=== PATIENT | female | born 1950 | race Caucasian/White ===

== ENCOUNTER 2017-12-31 14:34 | Emergency (ER) | payer MEDICARE, OTHER ==
[~2017-12-31] VITALS: Ht 172.7 cm; Wt 75.0 kg
[2017-12-31] MEDS ORDERED: aspirin 81mg tab.chew PO ONE (15:35)
[2017-12-31 15:57] LABS: BASOPHILS % (AUTO) 0.3 % (0-1); EOSINOPHILS # (AUTO) 0.1 X10'3 (0-0.9); HEMATOCRIT 41.1 % (35.0-45.0); HEMOGLOBIN 14.3 g/dl (12.0-16.0); LYMPHOCYTES # (AUTO) 1.3 X10'3 (1.1-4.8); LYMPHOCYTES % (AUTO) 16.4 % (21-51); MEAN CORPUSCULAR HGB CONC 34.8 % (33.0-36.5); MEAN CORPUSCULAR VOLUME 91.9 FL (78-98); MEAN PLATELET VOLUME 6.6 FL (7.4-10.4); MONOCYTES # (AUTO) 0.9 X10'3 (0-0.9); MONOCYTES % (AUTO) 11.6 % (2-12); NEUTROPHILS # (AUTO) 5.6 X10'3 (1.8-7.7); NEUTROPHILS % (AUTO) 70.7 % (42-75); PLATELET COUNT 217 X10'3 (140-440); RED BLOOD COUNT 4.47 X10'6 (4.20-5.60); RED CELL DISTRIBUTION WIDTH 12.1 % (11.5-14.5)
[2017-12-31 16:12] LABS: PARTIAL THROMBOPLASTIN TIME 29 SECONDS (22-32); PROTHROMBIN TIME 10.7 SECONDS (9.0-12.0)
[2017-12-31 16:12] LABS: CLARITY,URINE SLIGHTLY CLOUDY (Clear); COLOR,URINE YELLOW (Yellow); GLUCOSE, URINE NEGATIVE (Neg); KETONES,URINE NEGATIVE (Neg); LEUKOCYTE ESTERASE ,URINE LARGE (Neg); NITRITES, URINE POSITIVE (Neg); OCCULT BLOOD,URINE LARGE (Neg); PH,URINE 6.5 (4.8-8.0); PROTEIN,URINE NEGATIVE (Neg); UROBILINOGEN,URINE 0.2 E.U/dL (0.2-1.0)
[2017-12-31 16:13] LABS: ALANINE AMINOTRANSFERASE 70 U/L (12-78); ALBUMIN 3.5 G/DL (3.4-5.0); ALBUMIN/GLOBULIN RATIO 0.8 (1.1-1.5); ALKALINE PHOSPHATASE 87 IU/L (46-116); ANION GAP 9 (8-16); ASPARTATE AMINO TRANSFERASE 77 U/L (10-37); BILIRUBIN,TOTAL 0.5 MG/DL (0.1-1.0); BLOOD UREA NITROGEN 17 MG/DL (7-18); CALCIUM 8.9 MG/DL (8.5-10.1); CHLORIDE 97 MMOL/L (99-107); CREATININE 0.63 MG/DL (0.40-0.90); GLUCOSE 89 MG/DL (70-104); POTASSIUM 4.1 MMOL/L (3.5-5.1); SODIUM 132 MMOL/L (135-145); TOTAL CARBON DIOXIDE 26.2 MMOL/L (24-32); eGFR > 90 ML/MIN
[2017-12-31 16:13] LABS: UA COLLECTION TYPE NON-SPECIFIED
[2017-12-31 16:17] LABS: BACTERIA,URINE 2+ /HPF (Neg); MUCUS STRANDS NONE SEEN /LPF (Neg); SQUAMOUS EPITHELIAL CELL,UR FEW /LPF (FEW); WBC,URINE 30-50 /HPF (0-4)
[2017-12-31 16:20] LABS: MAGNESIUM 2.1 MG/DL (1.5-2.4)
[2017-12-31] MEDS ORDERED: HYDR-569 PO (17:08)
[2017-12-31] MEDS ORDERED: CEPH250T PO (17:08)
[2017-12-31] MEDS ORDERED: cephalexin 250mg capsule PO ONE (17:10)
[2017-12-31 17:23] VITALS: BP 152/68
== END 2017-12-31 17:35 | disposition home or self-care (01) ==
LOC: ER 14:35
DX: N39.0 Urinary tract infection, site not specified (principal); I83.93 Asymptomatic varicose veins of bilateral lower extremities; M71.21 Synovial cyst of popliteal space [Baker], right knee; Z87.891 Personal history of nicotine dependence; Z90.710 Acquired absence of both cervix and uterus
CPT/HCPCS: 36415; 71045; 80053; 81001; 83735; 83880; 85025; 85610; 85730; 86885; 86900; 86901; 87077; 87088; 87186; 93005; 93970; 99285

== ENCOUNTER 2018-11-07 14:01 | Day surgery (SDC) | payer MEDICARE ==
[2018-11-06 15:13] LABS: ALBUMIN 3.6 G/DL (3.4-5.0); ANION GAP 7 (8-16); BLOOD UREA NITROGEN 13 MG/DL (7-18); BUN/CREATININE RATIO 19.1 (6.6-38.0); CALCIUM 9.3 MG/DL (8.5-10.1); CHLORIDE 95 MMOL/L (99-107); CREATININE 0.68 MG/DL (0.40-0.90); POTASSIUM 4.3 MMOL/L (3.5-5.1); SODIUM 130 MMOL/L (135-145); TOTAL CARBON DIOXIDE 27.7 MMOL/L (24-32); eGFR 86 ML/MIN
[2018-11-06 15:16] LABS: GLUCOSE 89 MG/DL (70-104); INR 1.1 INR; PARTIAL THROMBOPLASTIN TIME 30 SECONDS (22-32); PROTHROMBIN TIME 11.3 SECONDS (9.0-12.0)
[2018-11-06 15:26] LABS: BASOPHILS % (AUTO) 0.9 % (0-1); EOSINOPHILS % (AUTO) 0.9 % (0-6); HEMATOCRIT 43.5 % (35.0-45.0); HEMOGLOBIN 14.6 g/dl (12.0-16.0); LYMPHOCYTES # (AUTO) 1.1 X10'3 (1.1-4.8); LYMPHOCYTES % (AUTO) 26.9 % (21-51); MEAN CORPUSCULAR HEMOGLOBIN 30.5 PG (27.0-31.0); MEAN CORPUSCULAR HGB CONC 33.6 g/dL (33.0-36.5); MEAN CORPUSCULAR VOLUME 90.5 FL (78-98); MEAN PLATELET VOLUME 7.1 FL (7.4-10.4); MONOCYTES # (AUTO) 0.6 X10'3 (0-0.9); MONOCYTES % (AUTO) 14.1 % (2-12); NEUTROPHILS # (AUTO) 2.4 X10'3 (1.8-7.7); NEUTROPHILS % (AUTO) 57.2 % (42-75); PLATELET COUNT 197 X10'3 (140-440); RED BLOOD COUNT 4.81 X10'6 (4.20-5.60); WHITE BLOOD COUNT 4.3 X10'3 (4.5-11.0)
[2018-11-07] VITALS (9 sets, daily range): BP systolic 102–143; BP diastolic 43–95
[~2018-11-07] VITALS: Ht 172.7 cm; Wt 75.3 kg
[~2018-11-07 14:01] MED LIST: CEPH250T PO; HYDR-4383 PO
[2018-11-07] MEDS ORDERED: LORazepam 0.5 MG tablet PO ONE (14:25)
[2018-11-07] MEDS ORDERED: normal saline 1000ml 1,000 ML IV SCH (14:25)
[2018-11-07] MEDS ORDERED: LIDOcaine/PRILOcaine 5gm cream TP ONE (14:25)
[2018-11-07] MEDS ORDERED: diphenhydrAMINE 25mg capsule PO ONE (14:25)
[2018-11-07] MEDS ORDERED: ASPI81TA52 PO (15:31)
[2018-11-07] MEDS ORDERED: LEVO112T5 PO (15:31)
[2018-11-07] MEDS ORDERED: LOSA50TA3 PO (15:31)
[2018-11-07] MEDS ORDERED: BUPR150T8 PO (15:31)
[2018-11-07] MEDS ORDERED: FLUO20CA39 PO (15:31)
[2018-11-07] MEDS ORDERED: MILK1CAP3 PO (15:31)
[2018-11-07] MEDS ORDERED: heparin 1,000unit/ml 10ml vial 10 ML ONE (15:52)
[2018-11-07] MEDS ORDERED: LIDOcaine 1% (10mg/ml)w/preservative injection 20ml MDV ONE (15:52)
[2018-11-07] MEDS ORDERED: nitroGLYCERIN-Tridil 50MG/D5W 250 ML IV ONE (15:52)
[2018-11-07] MEDS ORDERED: verapamil 2.5 mg/ml inj IV ONE (15:52)
[2018-11-07] MEDS ORDERED: iohexol 350MG/ML 100ml bottle IV ONE (15:52)
[2018-11-07] MEDS ORDERED: OXAZEpam 15mg capsule PO PRN (18:50)
[2018-11-07] MEDS ORDERED: ondansetron/PF 4mg/2ml inj IV PRN (18:55)
[2018-11-07] MEDS ORDERED: proCHLORperazine 10 MG/2 ml inj IV PRN (18:55)
[2018-11-19] MEDS ORDERED: VITA-268 PO (13:29)
[2018-11-19] MEDS ORDERED: MELA3TAB PO (13:29)
== END 2018-11-07 20:45 | disposition home or self-care (01) ==
LOC: SSTAY O 14:01
PROVIDERS: ATTEND Internal Medicine Interventional Cardiology
DX: R94.39 Abnormal result of other cardiovascular function study (principal); I34.0 Nonrheumatic mitral (valve) insufficiency; J44.9 Chronic obstructive pulmonary disease, unspecified; I10 Essential (primary) hypertension; E03.9 Hypothyroidism, unspecified; Z86.19 Personal history of other infectious and parasitic diseases
CPT/HCPCS: 36415; 80048; 85025; 85610; 85730; 93005; 93458; 99152; A6257; J1644; J2001; J7030; Q0163; Q9967; 90662; 99153; A4620; C1769; J3490

== ENCOUNTER 2018-11-21 05:33 | Inpatient (IN) | payer MEDICARE, OTHER ==
[2018-11-19 13:58] LABS: BASOPHILS # (AUTO) 0.1 X10'3 (0-0.2); BASOPHILS % (AUTO) 1.3 % (0-1); EOSINOPHILS % (AUTO) 0.7 % (0-6); LYMPHOCYTES # (AUTO) 1.1 X10'3 (1.1-4.8); LYMPHOCYTES % (AUTO) 21.4 % (21-51); MEAN CORPUSCULAR HEMOGLOBIN 30.6 PG (27.0-31.0); MEAN CORPUSCULAR HGB CONC 33.8 g/dL (33.0-36.5); MEAN CORPUSCULAR VOLUME 90.6 FL (78-98); MEAN PLATELET VOLUME 6.5 FL (7.4-10.4); MONOCYTES # (AUTO) 0.6 X10'3 (0-0.9); MONOCYTES % (AUTO) 12.7 % (2-12); NEUTROPHILS # (AUTO) 3.2 X10'3 (1.8-7.7); NEUTROPHILS % (AUTO) 63.9 % (42-75); PRE OP HEMATOCRIT 43.9 % (35.0-45.0); PRE OP HEMOGLOBIN 14.8 g/dL (12.0-16.0); PRE OP PLATELET COUNT 236 X10'3 (140-440); RED BLOOD COUNT 4.84 X10'6 (4.20-5.60); RED CELL DISTRIBUTION WIDTH 13.2 % (11.5-14.5)
[2018-11-19 14:07] LABS: PRE OP INR 1.2 INR; PRE OP PROTIME 11.8 SECONDS (9.0-12.0)
[2018-11-19 14:16] LABS: ALBUMIN 3.5 G/DL (3.4-5.0); ALBUMIN/GLOBULIN RATIO 0.8 (1.1-1.5); ALKALINE PHOSPHATASE 95 IU/L (46-116); BLOOD UREA NITROGEN 16 MG/DL (7-18); BUN/CREATININE RATIO 23.9 (6.6-38.0); CALCIUM 9.3 MG/DL (8.5-10.1); CHLORIDE 98 MMOL/L (99-107); CREATININE 0.67 MG/DL (0.40-0.90); PRE OP ALT 78 U/L (30-65); PRE OP ANION GAP 7 (8-16); PRE OP AST 90 U/L (10-37); PRE OP BILIRUB, TOTAL 0.5 MG/DL (0.0-1.0); PRE OP GLUCOSE 94 MG/DL (70-104); PRE OP POTASSIUM 4.4 MMOL/L (3.4-5.1); PRE OP SODIUM 131 MMOL/L (135-145); eGFR 88 ML/MIN
[2018-11-19 14:40] LABS: HEMOGLOBIN A1C 5.7 % (4.5-6.2)
[2018-11-20 13:37] LABS: ABG BASE EXCESS 0.5 mmol/L (-2.0-3.0); ABG HCO3 22.6 mmol/L (22.0-26.0); ABG OXYGEN SATURATION 96.9 % (95-98); ABG PCO2 (T) 29.9 mmHg (32.0-45.0); ABG PH (T) 7.496 (7.350-7.450); ABG PO2 (T) 90.7 mmHg (83-108); ALLEN'S TEST Positive; FMetHb 0.3 % (0.3-1.12); FO2Hb 95.6 % (94-100)
[~2018-11-21] VITALS: Ht 172.7 cm; Wt 75.6 kg
[2018-11-21] VITALS (17 sets, daily range): BP systolic 88–123; BP diastolic 44–103
[~2018-11-21 05:33] MED LIST changes: +BUPR150T8 PO; -CEPH250T PO; +FLUO20CA39 PO; -HYDR-4383 PO; +LEVO112T5 PO; +LORazepam 2 mg/ml vial IV ONE; +LOSA50TA3 PO; +MELA3TAB PO; +VITA-268 PO; +ceFAZolin 2gm in dextrose, iso 100 ML IV ONE; +dextrose 50%-water 50ml dispensing syringe IV PRN; +famotidine 20mg tablet PO ONE; +gabapentin 300mg capsule PO ONE; +metoprolol tartrate 12.5mg (1/2 tablet) PO ONE; +mupirocin 2% nasal ointment 1gm UD NS ONE; +ringers solution, lacted 1,000 ML IV SCH; +vancomycin inj 1,500 MG in normal saline 300ml IV soln IV ONE
[2018-11-21] MEDS ORDERED: LIDOcaine 1% (10mg/ml) 2ml vial ONE (06:19)
[2018-11-21] MEDS ORDERED: LORazepam 2 mg/ml vial ONE (06:42)
[2018-11-21] MEDS ORDERED: calcium chloride 100 MG/1 ML inj IV ONE (07:00)
[2018-11-21] MEDS ORDERED: magnesium sulf 1 GM/2 ML ONE (07:00)
[2018-11-21] MEDS ORDERED: potassium Cl 2 mEq/ml inj IV ONE (07:00)
[2018-11-21] MEDS ORDERED: isoflurane 100ml inhalation liquid IH ONE (07:00)
[2018-11-21] MEDS ORDERED: phenylephrine 10mg/ml inj. ONE ×2 (07:00→07:56)
[2018-11-21] MEDS ORDERED: albumin (human) 25% 100 ML IV solution IV ONE (07:00)
[2018-11-21] MEDS ORDERED: LIDOcaine 2% (20 mg/ml) 5ml cardiac syringe ONE (07:00)
[2018-11-21] MEDS ORDERED: heparin 10,000 units/1 ML INJ ONE (07:00)
[2018-11-21] MEDS ORDERED: heparin 1,000 units/ml 10ml inj ONE (07:00)
[2018-11-21] MEDS ORDERED: protamine sulf. 10mg/ml inj. IV ONE (07:00)
[2018-11-21] MEDS ORDERED: DOBUTamine/D5W 500mg/250ml premix IV ONE (07:00)
[2018-11-21] MEDS ORDERED: nitroGLYCERIN in D5W 50mg/250ml (Tridil) infusion IV ONE (07:00)
[2018-11-21] MEDS ORDERED: methylPREDNISolone sod succ 1000mg vial ONE (07:00)
[2018-11-21] MEDS ORDERED: sodium bicarbonate (8.4%) 1 mEq/ml syringe ONE (07:00)
[2018-11-21] MEDS ORDERED: aminocaproic acid 250 MG/1 ML inj. ONE ×2 (07:00)
[2018-11-21] MEDS ORDERED: INSULIN R 100 UNIT in NS 100ML (1 UNIT/1 ML) BAG IV ONE (07:00)
[2018-11-21] MEDS ORDERED: SUFENTANIL CITRATE 50 MCG/ML 2ml ampule IV ONE (07:11)
[2018-11-21 07:55] LABS: ABG BASE EXCESS 0.1 mmol/L (-2.0-3.0); ABG HCO3 24.9 mmol/L (22.0-26.0); ABG OXYGEN SATURATION 99.4 % (95-98); ABG PCO2 41.2 mmHg (35.0-45.0); ABG PO2 456.4 mmHg (60.0-100.0); CL (ABG) 99 mmol/L (99-107); FCOHb 0.4 % (0.5-1.5); GLUCOSE (ABG) 88 mg/dl (70-105); IONIZED CA (ABG) 1.16 mmol/L (1.03-1.32); K (ABG) 4.3 mmol/L (3.3-5.1); NA (ABG) 131 mmol/L (135-145); TOTAL HEMOGLOBIN 13.2 G/dl (12.0-16.0)
[2018-11-21] MEDS ORDERED: rocuronium 10mg/ml inj IV ONE (07:55)
[2018-11-21] MEDS ORDERED: LIDOcaine 2% (20mg/ml) 5ml vial ONE (07:56)
[2018-11-21] MEDS ORDERED: pancuronium br 1mg/ml inj IV ONE (07:56)
[2018-11-21] MEDS ORDERED: propofol inj 20 ML IV ONE (07:56)
[2018-11-21] MEDS ORDERED: acetaminophen 1,000mg/100ml IV 100 ML IV ONE (08:24)
[2018-11-21] MEDS ORDERED: ceFAZolin 1000mg inj ONE (08:24)
[2018-11-21] MEDS ORDERED: ROPIVAcaine 0.5% (5mg/ml) 30ml vial ONE (08:24)
[2018-11-21 09:00] LABS: ABG BASE EXCESS -2.3 mmol/L (-2.0-3.0); ABG OXYGEN SATURATION 99.3 % (95-98); ABG PCO2 41.2 mmHg (35.0-45.0); ABG PH 7.364 (7.350-7.450); ABG PO2 337.2 mmHg (60.0-100.0); CL (ABG) 98 mmol/L (99-107); FCOHb 0.1 % (0.5-1.5); FMetHb 0.3 % (0.3-1.12); FO2Hb 98.9 % (94-100); GLUCOSE (ABG) 101 mg/dl (70-105); IONIZED CA (ABG) 1.09 mmol/L (1.03-1.32); K (ABG) 5.3 mmol/L (3.3-5.1); NA (ABG) 128 mmol/L (135-145); TOTAL HEMOGLOBIN 10.6 G/dl (12.0-16.0)
[2018-11-21 09:35] LABS: ABG BASE EXCESS VENOUS -0.4 mmol/L; ABG HCO3 VENOUS 25.6 mmol/L; ABG PCO2 VENOUS 48.4 mmHg; ABG PO2 VENOUS 57.1 mmHg; CL (ABG) 99 mmol/L (99-107); FCOHb VENOUS 0.9 %; FHHb VENOUS 12.1 %; FMetHb VENOUS 0.3 %; FO2Hb VENOUS 86.7 %; GLUCOSE (ABG) 106 mg/dl (70-105); K (ABG) 5.3 mmol/L (3.3-5.1); NA (ABG) 129 mmol/L (135-145); TOTAL HEMOGLOBIN 10.8 G/dl (12.0-16.0)
[2018-11-21 10:05] LABS: ABG BASE EXCESS -0.5 mmol/L (-2.0-3.0); ABG HCO3 24.8 mmol/L (22.0-26.0); ABG OXYGEN SATURATION 99.2 % (95-98); ABG PH 7.378 (7.350-7.450); CL (ABG) 100 mmol/L (99-107); FCOHb 0.3 % (0.5-1.5); FMetHb 0.4 % (0.3-1.12); FO2Hb 98.5 % (94-100); GLUCOSE (ABG) 117 mg/dl (70-105); K (ABG) 5.5 mmol/L (3.3-5.1); NA (ABG) 128 mmol/L (135-145); TOTAL HEMOGLOBIN 10.9 G/dl (12.0-16.0)
[2018-11-21 11:16] LABS: ABG BASE EXCESS -0.6 mmol/L (-2.0-3.0); ABG HCO3 23.9 mmol/L (22.0-26.0); ABG PH 7.406 (7.350-7.450); ABG PO2 405.7 mmHg (60.0-100.0); CL (ABG) 100 mmol/L (99-107); FCOHb 0.1 % (0.5-1.5); FMetHb 0.2 % (0.3-1.12); FO2Hb 98.7 % (94-100); GLUCOSE (ABG) 136 mg/dl (70-105); IONIZED CA (ABG) 1.26 mmol/L (1.03-1.32); K (ABG) 4.5 mmol/L (3.3-5.1); NA (ABG) 130 mmol/L (135-145); TOTAL HEMOGLOBIN 10.8 G/dl (12.0-16.0)
[2018-11-21 11:20] LABS: ACT @ 1.70 U 350 SEC (193-297); ACT @ 2.84 U 566 SEC (260-420); BASELINE ACT 145 SEC (101-148)
[2018-11-21 11:20] LABS: ACTIVATED CLOTTING TIME 705 SEC (101-148)
[2018-11-21 11:21] LABS: ACTIVATED CLOTTING TIME 925 SEC (101-148)
[2018-11-21 11:21] LABS: ACTIVATED CLOTTING TIME 128 SEC (101-148)
[2018-11-21] MEDS ORDERED: niCARDipine-NS 40mg/200ml IVPB 200 ML IV PRN (11:54)
[2018-11-21] MEDS ORDERED: nitroGLYCERIN-Tridil 50MG/D5W 250 ML IV PRN (11:54)
[2018-11-21] MEDS ORDERED: DOPamine 400mg/D5W 250ml 250 ML IV PRN (11:54)
[2018-11-21] MEDS ORDERED: magnesium 2GM in 50ml NS 50 ML IV PRN (11:55)
[2018-11-21] MEDS ORDERED: normal saline 250ml IV soln 250 ML IV PRN (11:55)
[2018-11-21] MEDS ORDERED: magnesium 4gm in 100ml NS 100 ML IV PRN (11:55)
[2018-11-21] MEDS ORDERED: acetaminophen 325mg tablet PO PRN (11:55)
[2018-11-21] MEDS ORDERED: insulin regular, human inj. 100 UNITS in normal saline 100ml IV soln 100 ML IV SCH ×2 (11:55)
[2018-11-21] MEDS ORDERED: dextrose 50%-water 50ml dispensing syringe IV PRN (11:55)
[2018-11-21] MEDS ORDERED: metoclopramide 5 mg/ml inj IV PRN (11:55)
[2018-11-21] MEDS ORDERED: sodium phosphate inj. 30 MMOL in dextrose 5%-water 250 ML IV PRN (11:55)
[2018-11-21] MEDS ORDERED: pantoprazole 40 MG vial IV ONE (11:55)
[2018-11-21] MEDS ORDERED: sodium phosphate inj. 15 MMOL in dextrose 5%-water 150 ML IV PRN (11:55)
[2018-11-21] MEDS ORDERED: ondansetron/PF 4mg/2ml inj IV PRN (11:55)
--- NOTE | 2018-11-21 12:07 | NUR ---
Received to room 2012, accompanied by MDs and surgical crew. See assessment records. Mather/PAline/CVPline and IVs noted in IV assessment records. All sites without redness or swelling. Vasoactive drugs infusing per Central Line.
--- NOTE | 2018-11-21 12:15 | NUR ---
Nutrition consult received. Pt s/p mitral valve repair and L atrial appendage ligation. Will need written and verbal post cardiac surgery diet education. Addendum: 11/21/18 at [address] Amended: Links added.
[2018-11-21 12:25] LABS: ABG BASE EXCESS -1.9 mmol/L (-2.0-3.0); ABG HCO3 24.1 mmol/L (22.0-26.0); ABG OXYGEN SATURATION 99.1 % (95-98); ABG PCO2 (T) 45.2 mmHg (32.0-45.0); ABG PH (T) 7.344 (7.350-7.450); ABG PO2 (T) 241.6 mmHg (83-108); FCOHb 0.3 % (0.5-1.5); FLOW 55 L/min; FMetHb 0.2 % (0.3-1.12); FO2Hb 98.6 % (94-100); PEEP 5 cm H2O; RESPIRATORY RATE 12 b/min; RESPIRATORY RATE (OBSERVED) 12 b/min; TIDAL VOLUME 550 mL; TOTAL HEMOGLOBIN 14.3 G/dl (12.0-16.0)
[2018-11-21 12:42] LABS: ALANINE AMINOTRANSFERASE 55 U/L (12-78); ALBUMIN 2.9 G/DL (3.4-5.0); ALBUMIN/GLOBULIN RATIO 0.9 (1.1-1.5); ALKALINE PHOSPHATASE 68 IU/L (46-116); ANION GAP 3 (8-16); ASPARTATE AMINO TRANSFERASE 99 U/L (10-37); BASOPHILS % (AUTO) 0.4 % (0-1); BILIRUBIN,TOTAL 0.6 MG/DL (0.1-1.0); BLOOD UREA NITROGEN 13 MG/DL (7-18); BUN/CREATININE RATIO 16.7 (6.6-38.0); CALCIUM 8.7 MG/DL (8.5-10.1); CHLORIDE 103 MMOL/L (99-107); CREATININE 0.78 MG/DL (0.40-0.90); EOSINOPHILS % (AUTO) 0.2 % (0-6); GLUCOSE 137 MG/DL (70-104); HEMATOCRIT 40.5 % (35.0-45.0); HEMOGLOBIN 13.8 g/dl (12.0-16.0); LYMPHOCYTES # (AUTO) 0.6 X10'3 (1.1-4.8); LYMPHOCYTES % (AUTO) 4.7 % (21-51); MAGNESIUM 3.5 MG/DL (1.5-2.4); MEAN CORPUSCULAR HEMOGLOBIN 30.8 PG (27.0-31.0); MEAN CORPUSCULAR HGB CONC 33.9 g/dL (33.0-36.5); MEAN CORPUSCULAR VOLUME 90.7 FL (78-98); MEAN PLATELET VOLUME 6.6 FL (7.4-10.4); MONOCYTES # (AUTO) 0.5 X10'3 (0-0.9); MONOCYTES % (AUTO) 3.6 % (2-12); NEUTROPHILS # (AUTO) 12.3 X10'3 (1.8-7.7); NEUTROPHILS % (AUTO) 91.1 % (42-75); PHOSPHORUS 2.7 MG/DL (2.3-4.5); PLATELET COUNT 112 X10'3 (140-440); RED BLOOD COUNT 4.47 X10'6 (4.20-5.60); RED CELL DISTRIBUTION WIDTH 13.1 % (11.5-14.5); SODIUM 133 MMOL/L (135-145); TOTAL CARBON DIOXIDE 26.7 MMOL/L (24-32); WHITE BLOOD COUNT 13.5 X10'3 (4.5-11.0); eGFR 73 ML/MIN
[2018-11-21 12:46] LABS: INR 1.3 INR; PARTIAL THROMBOPLASTIN TIME 31 SECONDS (22-32); PROTHROMBIN TIME 13.4 SECONDS (9.0-12.0)
[2018-11-21] MEDS: albumin (Human) 5% 250ml 250 ML IV PRN ×3 (12:48→16:34)
[2018-11-21] MEDS: sodium chloride 0.45% 1,000 ML IV SCH (12:49)
[2018-11-21] MEDS: insulin Lispro (HumaLOG) vial - multi-dose SQ SCH ×2 (12:50→16:51)
[2018-11-21 13:06] LABS: POTASSIUM 4.2 MMOL/L (3.5-5.1)
[2018-11-21] MEDS: insulin regular, human 100 UNIT in normal saline 100ml IV soln 99 ML IV SCH ×4 (13:14→14:32)
[2018-11-21] MEDS: potassium Cl 20mEq/100mL bag 100 ML IV PRN ×2 (13:35→22:37)
[2018-11-21] MEDS: gabapentin 300mg capsule PO SCH ×2 (14:35→20:02)
[2018-11-21] MEDS: ceFAZolin 1GM/D5W- ADD-VANTAGE 50 ML IV SCH (16:02)
[2018-11-21] MEDS: morphine 4 MG/ML inj SYRINge IV PRN (16:02)
[2018-11-21 17:26] LABS: ABG BASE EXCESS -2.4 mmol/L (-2.0-3.0); ABG HCO3 23.5 mmol/L (22.0-26.0); ABG OXYGEN SATURATION 95.2 % (95-98); ABG PCO2 (T) 45.4 mmHg (32.0-45.0); ABG PH (T) 7.333 (7.350-7.450); ABG PO2 (T) 81.3 mmHg (83-108); FCOHb 0.2 % (0.5-1.5); MINUTE VOLUME 9 L/min; PATIENT TEMPERATURE 37.4; PEEP 5 cm H2O; RESPIRATORY RATE (OBSERVED) 15 b/min; TOTAL HEMOGLOBIN 12.2 G/dl (12.0-16.0)
--- NOTE | 2018-11-21 17:33 | NUR ---
Patient extubated and placed on 3L NC.
[2018-11-21 18:22] LABS: BASOPHILS % (AUTO) 0.5 % (0-1); EOSINOPHILS % (AUTO) 0 % (0-6); HEMATOCRIT 34.4 % (35.0-45.0); HEMOGLOBIN 12.1 g/dl (12.0-16.0); LYMPHOCYTES # (AUTO) 0.3 X10'3 (1.1-4.8); LYMPHOCYTES % (AUTO) 3.4 % (21-51); MEAN CORPUSCULAR HEMOGLOBIN 31.8 PG (27.0-31.0); MEAN CORPUSCULAR HGB CONC 35.1 g/dL (33.0-36.5); MEAN CORPUSCULAR VOLUME 90.6 FL (78-98); MEAN PLATELET VOLUME 7.3 FL (7.4-10.4); MONOCYTES # (AUTO) 0.3 X10'3 (0-0.9); MONOCYTES % (AUTO) 3.3 % (2-12); NEUTROPHILS # (AUTO) 9.5 X10'3 (1.8-7.7); NEUTROPHILS % (AUTO) 92.8 % (42-75); PLATELET COUNT 117 X10'3 (140-440); RED CELL DISTRIBUTION WIDTH 13.4 % (11.5-14.5); WHITE BLOOD COUNT 10.2 X10'3 (4.5-11.0)
[2018-11-21 18:25] LABS: ALBUMIN 3.6 G/DL (3.4-5.0); ANION GAP 5 (8-16); BLOOD UREA NITROGEN 13 MG/DL (7-18); BUN/CREATININE RATIO 17.6 (6.6-38.0); CALCIUM 8.1 MG/DL (8.5-10.1); CHLORIDE 107 MMOL/L (99-107); CREATININE 0.74 MG/DL (0.40-0.90); GLUCOSE 106 MG/DL (70-104); MAGNESIUM 2.3 MG/DL (1.5-2.4); POTASSIUM 4.3 MMOL/L (3.5-5.1); SODIUM 137 MMOL/L (135-145); TOTAL CARBON DIOXIDE 24.8 MMOL/L (24-32); eGFR 78 ML/MIN
--- NOTE | 2018-11-21 18:25 | NUR ---
Problems reprioritized. Patient report given, questions answered & plan of care reviewed with Karyna Velasquez RN.
--- NOTE | 2018-11-21 18:30 | NUR ---
Patient in room CICU 2011. I have received report from Amna HENDRICKS and had the opportunity to ask questions and assume patient care. Pt post extubation@1733, very somulent,opens eyes to voice but appears to fall right back to sleep. Sats 95% on 3LNC. Dopamine infusing@4mcg.
[2018-11-21] MEDS ORDERED: buPROPion SR 150mg tablet PO SCH (20:00)
[2018-11-21] MEDS: docusate sod 100mg capsule PO SCH (20:00)
[2018-11-21] MEDS: mupirocin 2% nasal ointment 1gm UD NS SCH ×2 (20:01→20:39)
[2018-11-21] MEDS: vancomycin/NS 1 GM ADD-VANTAGE 250 ML IV SCH (20:01)
--- NOTE | 2018-11-21 20:03 | NUR ---
Pt remains very somulent, awakens to voice but falls back asleep immediately after. PM PO meds held at this time. Will continue to monitor
--- NOTE | 2018-11-21 23:00 | NUR ---
Report given to break relief ELADIO Monroe, all special issues communicated. Will resume care in 30 minutes.
--- NOTE | 2018-11-21 23:30 | NUR ---
Resumed care after receiving report from Mabel HENDRICKS. Pt still somulent but awakens to voice. Dopamine still at 5mcg.
[2018-11-22] VITALS (23 sets, daily range): BP systolic 96–132; BP diastolic 35–54
[2018-11-22] MEDS: ceFAZolin 1GM/D5W- ADD-VANTAGE 50 ML IV SCH ×3 (00:02→16:35)
--- NOTE | 2018-11-22 01:44 | NUR ---
Pt appears to be sleeping. Was awake and answering questions appropriately earlier during bath and q2h turn.
[2018-11-22] MEDS: morphine 4 MG/ML inj SYRINge IV PRN ×2 (02:15→07:10)
[2018-11-22 04:19] LABS: BASOPHILS % (AUTO) 0.1 % (0-1); EOSINOPHILS % (AUTO) 0 % (0-6); HEMATOCRIT 32.8 % (35.0-45.0); HEMOGLOBIN 11.2 g/dl (12.0-16.0); LYMPHOCYTES # (AUTO) 0.8 X10'3 (1.1-4.8); LYMPHOCYTES % (AUTO) 6.7 % (21-51); MEAN CORPUSCULAR HEMOGLOBIN 30.9 PG (27.0-31.0); MEAN CORPUSCULAR HGB CONC 34.2 g/dL (33.0-36.5); MEAN CORPUSCULAR VOLUME 90.3 FL (78-98); MEAN PLATELET VOLUME 6.9 FL (7.4-10.4); MONOCYTES # (AUTO) 1.1 X10'3 (0-0.9); MONOCYTES % (AUTO) 9.4 % (2-12); NEUTROPHILS # (AUTO) 10.1 X10'3 (1.8-7.7); NEUTROPHILS % (AUTO) 83.8 % (42-75); PLATELET COUNT 106 X10'3 (140-440); RED BLOOD COUNT 3.63 X10'6 (4.20-5.60); RED CELL DISTRIBUTION WIDTH 13.4 % (11.5-14.5)
[2018-11-22 04:29] LABS: INR 1.2 INR; PARTIAL THROMBOPLASTIN TIME 31 SECONDS (22-32); PROTHROMBIN TIME 11.9 SECONDS (9.0-12.0)
[2018-11-22 04:42] LABS: ALANINE AMINOTRANSFERASE 42 U/L (12-78); ALBUMIN 3.5 G/DL (3.4-5.0); ALBUMIN/GLOBULIN RATIO 1.2 (1.1-1.5); ALKALINE PHOSPHATASE 43 IU/L (46-116); ANION GAP 6 (8-16); ASPARTATE AMINO TRANSFERASE 88 U/L (10-37); BILIRUBIN,TOTAL 0.5 MG/DL (0.1-1.0); BLOOD UREA NITROGEN 12 MG/DL (7-18); BUN/CREATININE RATIO 19.4 (6.6-38.0); CALCIUM 8.3 MG/DL (8.5-10.1); CHLORIDE 106 MMOL/L (99-107); CREATININE 0.62 MG/DL (0.40-0.90); GLUCOSE 104 MG/DL (70-104); MAGNESIUM 2.5 MG/DL (1.5-2.4); PHOSPHORUS 4.3 MG/DL (2.3-4.5); POTASSIUM 4.4 MMOL/L (3.5-5.1); SODIUM 138 MMOL/L (135-145); TOTAL CARBON DIOXIDE 26.4 MMOL/L (24-32); TOTAL PROTEIN 6.5 G/DL (6.4-8.2); eGFR > 90 ML/MIN
[2018-11-22] MEDS: potassium Cl 20mEq/100mL bag 100 ML IV PRN (04:51)
[2018-11-22] MEDS: HYDROcodone/acetaminophen 10/325mg tab PO PRN ×3 (05:31→17:21)
--- NOTE | 2018-11-22 05:43 | NUR ---
Dangled pt at side of bed w/two person assist. Pt tolerated well but complained of lightheadedness. Chest tube output, serosanguineous, 210 mL with sitting upright. Vital signs stable. Returned to bed without incident.
--- NOTE | 2018-11-22 06:15 | NUR ---
Patient in room CICU 2011. I have received report from station baggage agent and had the opportunity to ask questions and assume patient care.
--- NOTE | 2018-11-22 06:18 | NUR ---
Problems reprioritized. Patient report given, questions answered & plan of care reviewed with Nilda HENDRICKS.
[2018-11-22] MEDS: gabapentin 300mg capsule PO SCH ×3 (08:00→20:50)
[2018-11-22] MEDS ORDERED: atorvastatin 10mg tablet PO SCH (08:00)
[2018-11-22] MEDS ORDERED: aspirin 325mg tablet, delayed-release (Ecotrin) PO SCH (08:00)
[2018-11-22] MEDS: vancomycin/NS 1 GM ADD-VANTAGE 250 ML IV SCH ×2 (08:31→19:46)
[2018-11-22] MEDS: FLUoxetine 20mg capsule PO SCH (08:31)
[2018-11-22] MEDS: docusate sod 100mg capsule PO SCH ×2 (08:31→19:46)
[2018-11-22] MEDS: mupirocin 2% nasal ointment 1gm UD NS SCH ×2 (08:31→19:46)
[2018-11-22] MEDS: levoTHYROXINE 112mcg tablet PO SCH (08:31)
[2018-11-22] MEDS: albumin (Human) 5% 250ml 250 ML IV PRN (08:36)
[2018-11-22] MEDS: insulin Lispro (HumaLOG) vial - multi-dose SQ SCH ×2 (09:00→13:00)
[2018-11-22] MEDS: sodium chloride 0.45% 1,000 ML IV SCH (17:36)
--- NOTE | 2018-11-22 18:27 | NUR ---
Patient in room CICU 2011. I have received report from Desire HENDRICKS, and had the opportunity to ask questions and assume patient care.
--- NOTE | 2018-11-22 19:30 | NUR ---
PT sitting up eating dinner. No s/s of distress noted at this time. VSS. PT receiving 2L O2 to NC, tolerating well. O2 >94%. CT site is CDI, serosanguineous drainage noted in tubing. Rosenberg in place draining to gravity. Sternal incision is CDI and MARKUS. Bed is locked and low. Call light is within reach. Will continue to monitor.
--- NOTE | 2018-11-22 21:00 | NUR ---
PRN Zofran given for PT c/o nausea. Will continue to monitor.
[2018-11-23] VITALS (24 sets, daily range): BP systolic 89–143; BP diastolic 37–94
[2018-11-23] MEDS: ceFAZolin 1GM/D5W- ADD-VANTAGE 50 ML IV SCH (00:11)
[2018-11-23] MEDS: HYDROcodone/acetaminophen 10/325mg tab PO PRN ×5 (00:12→21:34)
--- NOTE | 2018-11-23 00:30 | NUR ---
PT c/o pain at chest tube site, PRN [place] given. Will continue to monitor.
[2018-11-23 02:54] LABS: BASOPHILS % (AUTO) 0.2 % (0-1); EOSINOPHILS % (AUTO) 0 % (0-6); HEMATOCRIT 28.5 % (35.0-45.0); HEMOGLOBIN 9.2 g/dl (12.0-16.0); LYMPHOCYTES # (AUTO) 0.8 X10'3 (1.1-4.8); LYMPHOCYTES % (AUTO) 7.5 % (21-51); MEAN CORPUSCULAR HEMOGLOBIN 29.9 PG (27.0-31.0); MEAN CORPUSCULAR HGB CONC 32.4 g/dL (33.0-36.5); MEAN CORPUSCULAR VOLUME 92.5 FL (78-98); MEAN PLATELET VOLUME 7.3 FL (7.4-10.4); MONOCYTES # (AUTO) 0.8 X10'3 (0-0.9); MONOCYTES % (AUTO) 7.2 % (2-12); NEUTROPHILS # (AUTO) 9.5 X10'3 (1.8-7.7); NEUTROPHILS % (AUTO) 85.1 % (42-75); PLATELET COUNT 81 X10'3 (140-440); RED BLOOD COUNT 3.09 X10'6 (4.20-5.60); RED CELL DISTRIBUTION WIDTH 13.5 % (11.5-14.5); WHITE BLOOD COUNT 11.2 X10'3 (4.5-11.0)
--- NOTE | 2018-11-23 03:00 | NUR ---
PT sleeping with no s/s of distress noted at this time, Olancha has been effective for pain control. VSS. Bed is locked and low. Call light is within reach. Will continue to monitor.
[2018-11-23 03:15] LABS: ALBUMIN 3.6 G/DL (3.4-5.0); ANION GAP 6 (8-16); BLOOD UREA NITROGEN 32 MG/DL (7-18); BUN/CREATININE RATIO 20.8 (6.6-38.0); CALCIUM 8.3 MG/DL (8.5-10.1); CHLORIDE 98 MMOL/L (99-107); CREATININE 1.54 MG/DL (0.40-0.90); GLUCOSE 156 MG/DL (70-104); MAGNESIUM 2.3 MG/DL (1.5-2.4); PHOSPHORUS 4.3 MG/DL (2.3-4.5); POTASSIUM 5.2 MMOL/L (3.5-5.1); SODIUM 130 MMOL/L (135-145); TOTAL CARBON DIOXIDE 25.6 MMOL/L (24-32); eGFR 34 ML/MIN
[2018-11-23] MEDS ORDERED: magnesium 2GM in 50ml NS 50 ML IV ONE (05:10)
--- NOTE | 2018-11-23 06:15 | NUR ---
Patient in room CICU 2011. I have received report from maintenance technician 2nd shift and had the opportunity to ask questions and assume patient care.
[2018-11-23] MEDS ORDERED: aspirin 325mg tablet, delayed-release (Ecotrin) PO SCH (08:00)
[2018-11-23] MEDS: FLUoxetine 20mg capsule PO SCH (08:33)
[2018-11-23] MEDS: mupirocin 2% nasal ointment 1gm UD NS SCH (08:33)
[2018-11-23] MEDS: levoTHYROXINE 112mcg tablet PO SCH (08:34)
[2018-11-23] MEDS: aspirin 81mg tab.chew PO SCH (08:34)
[2018-11-23] MEDS: pantoprazole 40mg Tablet.DR PO SCH (08:34)
[2018-11-23] MEDS: docusate sod 100mg capsule PO SCH ×2 (08:34→20:08)
[2018-11-23] MEDS: gabapentin 300mg capsule PO SCH (08:34)
[2018-11-23 14:03] LABS: CLARITY,URINE SLIGHTLY CLOUDY (Clear); COLOR,URINE YELLOW (Yellow); GLUCOSE, URINE NEGATIVE (Neg); KETONES,URINE NEGATIVE (Neg); LEUKOCYTE ESTERASE ,URINE SMALL (Neg); NITRITES, URINE NEGATIVE (Neg); OCCULT BLOOD,URINE LARGE (Neg); PROTEIN,URINE NEGATIVE (Neg); UROBILINOGEN,URINE 0.2 E.U/dL (0.2-1.0)
[2018-11-23 14:08] LABS: UA COLLECTION TYPE NON-SPECIFIED
[2018-11-23 14:14] LABS: BACTERIA,URINE FEW /HPF (Neg); RBC,URINE 20-50 /HPF (0-2); SQUAMOUS EPITHELIAL CELL,UR FEW /LPF (FEW)
[2018-11-23 14:17] LABS: SODIUM,URINE RANDOM < 15 MEQ/L
[2018-11-23 14:42] LABS: UA EOSINOPHILS NO EOS /HPF
--- NOTE | 2018-11-23 18:04 | NUR ---
Problems reprioritized. Patient report given, questions answered & plan of care reviewed with oncoming shift.
--- NOTE | 2018-11-23 23:00 | NUR ---
At the hourly I and O checks I noticed that the drainage from chest tube had significantly increased from the 2200 check to this time. I notified the charge nurse, ELADIO Anderson and she contacted Dr. Marcano. At this time the chest tube Drainage unit had filled all chambers and had rolled into the suction control chamber. We changed out the chamber and continued to monitor patient vitals which at this time are stable. Labs were drawn at this time specifically H/H and PT/INR.
[2018-11-23 23:23] LABS: BASOPHILS % (AUTO) 0.4 % (0-1); EOSINOPHILS % (AUTO) 0.2 % (0-6); HEMATOCRIT 26.7 % (35.0-45.0); HEMOGLOBIN 8.8 g/dl (12.0-16.0); LYMPHOCYTES % (AUTO) 8.1 % (21-51); MEAN CORPUSCULAR HEMOGLOBIN 30.4 PG (27.0-31.0); MEAN CORPUSCULAR HGB CONC 33.1 g/dL (33.0-36.5); MEAN CORPUSCULAR VOLUME 91.7 FL (78-98); MEAN PLATELET VOLUME 7.2 FL (7.4-10.4); MONOCYTES % (AUTO) 8.6 % (2-12); NEUTROPHILS # (AUTO) 9.9 X10'3 (1.8-7.7); NEUTROPHILS % (AUTO) 82.7 % (42-75); PLATELET COUNT 102 X10'3 (140-440); RED BLOOD COUNT 2.91 X10'6 (4.20-5.60); RED CELL DISTRIBUTION WIDTH 13.3 % (11.5-14.5)
--- NOTE | 2018-11-23 23:30 | NUR ---
Dr. Marcano called for sudden increased CT output; dk burgundy color w/clots; approx 600cc over last hour; stat labs done; VSS; pt offers no complaints; no new orders.
[2018-11-23 23:46] LABS: INR 1.1 INR; PROTHROMBIN TIME 11.5 SECONDS (9.0-12.0)
[2018-11-24] VITALS (31 sets, daily range): BP systolic 77–197; BP diastolic 34–110
[2018-11-24 00:33] LABS: BASOPHILS # (AUTO) 0.1 X10'3 (0-0.2); BASOPHILS % (AUTO) 0.5 % (0-1); EOSINOPHILS % (AUTO) 0.2 % (0-6); HEMATOCRIT 23.5 % (35.0-45.0); HEMOGLOBIN 7.8 g/dl (12.0-16.0); LYMPHOCYTES # (AUTO) 1.2 X10'3 (1.1-4.8); LYMPHOCYTES % (AUTO) 9.6 % (21-51); MEAN CORPUSCULAR HEMOGLOBIN 30.3 PG (27.0-31.0); MEAN CORPUSCULAR HGB CONC 33.1 g/dL (33.0-36.5); MEAN CORPUSCULAR VOLUME 91.7 FL (78-98); MEAN PLATELET VOLUME 7.6 FL (7.4-10.4); MONOCYTES # (AUTO) 1.1 X10'3 (0-0.9); MONOCYTES % (AUTO) 8.6 % (2-12); NEUTROPHILS # (AUTO) 10.4 X10'3 (1.8-7.7); NEUTROPHILS % (AUTO) 81.1 % (42-75); PLATELET COUNT 108 X10'3 (140-440); RED BLOOD COUNT 2.56 X10'6 (4.20-5.60); RED CELL DISTRIBUTION WIDTH 13.2 % (11.5-14.5); WHITE BLOOD COUNT 12.8 X10'3 (4.5-11.0)
--- NOTE | 2018-11-24 01:00 | NUR ---
Dr. Marcano called again re: continued large CT output; pt w/another 1400cc output; BP trending down; repeat H/H done, pt now symptomatic w/lightheadedness, pale and slightly clammy. on way in to see pt.
--- NOTE | 2018-11-24 01:30 | NUR ---
Chest tube drainage has continued to drain up to approx. 1.8 liters. Vitals are changing and Systolic Blood pressure is dropping from 130s to 100s. Charge nurse ELADIO Anderson notified and Dr. Marcano contacted again. Dr. Billy will come in to examine patient. Will continue to monitor patient.
--- NOTE | 2018-11-24 02:00 | NUR ---
Dr. Marcano arrives and orders patient to receive 2 units of blood which are started. Dr. Marcano consults with patient about going to the OR to surgically explore the reason for the bleeding. Patient is now c/o dizzyness and SBP are as low as 77. The rest of the surgical team arrives. Patient is prepared for the surgery. Patient leaves the floor, she is stable and alert and oriented.
[2018-11-24] MEDS ORDERED: ketamine 10mg/ml 20ml inj ONE (02:13)
--- NOTE | 2018-11-24 02:13 | NUR ---
Dr. Marcano here; OR team called in to take pt to OR; received orders to transfuse 2 units of PRBCs now; Dr. marcano spoke w/ and updated.
--- NOTE | 2018-11-24 02:15 | NUR ---
Reported off to ELADIO Anderson who will be taking on patient when she returns from OR. All questions were and answered and opportunity to ask questions regarding this patient.
[2018-11-24] MEDS ORDERED: midazolam 2 mg/2 ml injection ONE (02:16)
[2018-11-24] MEDS ORDERED: ROPIVAcaine 0.5% (5mg/ml) 30ml vial ONE (02:16)
[2018-11-24] MEDS ORDERED: fentaNYL /PF 50mcg/ml 5ml ampule ONE (02:16)
[2018-11-24] MEDS ORDERED: heparin 10,000 units/1 ML INJ ONE (02:16)
[2018-11-24] MEDS ORDERED: ceFAZolin 1000mg inj ONE (02:16)
[2018-11-24 02:17] LABS: ALBUMIN 2.7 G/DL (3.4-5.0); ANION GAP 4 (8-16); BLOOD UREA NITROGEN 30 MG/DL (7-18); BUN/CREATININE RATIO 27.5 (6.6-38.0); CALCIUM 7.9 MG/DL (8.5-10.1); CHLORIDE 100 MMOL/L (99-107); CREATININE 1.09 MG/DL (0.40-0.90); GLUCOSE 152 MG/DL (70-104); MAGNESIUM 2.5 MG/DL (1.5-2.4); PHOSPHORUS 3.4 MG/DL (2.3-4.5); POTASSIUM 5.1 MMOL/L (3.5-5.1); SODIUM 129 MMOL/L (135-145); TOTAL CARBON DIOXIDE 25.4 MMOL/L (24-32); eGFR 50 ML/MIN
[2018-11-24] MEDS ORDERED: NORepinephrine bitartrate 8 MG in NS 250 ML BAG (32 mcg/ml) IV ONE (02:26)
[2018-11-24] MEDS ORDERED: sevoflurane 250ml liquid IH ONE (02:26)
[2018-11-24] MEDS ORDERED: rocuronium 10mg/ml inj IV ONE (02:26)
[2018-11-24 03:16] LABS: ABG HCO3 22.3 mmol/L (22.0-26.0); ABG OXYGEN SATURATION 98.8 % (95-98); ABG PCO2 40.6 mmHg (35.0-45.0); ABG PH 7.357 (7.350-7.450); ABG PO2 159.7 mmHg (60.0-100.0); CL (ABG) 101 mmol/L (99-107); FCOHb 0.8 % (0.5-1.5); FMetHb 0.2 % (0.3-1.12); FO2Hb 97.8 % (94-100); GLUCOSE (ABG) 130 mg/dl (70-105); K (ABG) 4.8 mmol/L (3.3-5.1); NA (ABG) 129 mmol/L (135-145); TOTAL HEMOGLOBIN 9.4 G/dl (12.0-16.0)
[2018-11-24] MEDS ORDERED: LORazepam 2 mg/ml vial ONE (04:30)
[2018-11-24] MEDS ORDERED: propofol 1000mg/100ml bottle 100 ML IV ONE ×3 (04:31→13:48)
[2018-11-24] MEDS: morphine 4 MG/ML inj SYRINge IV PRN ×4 (04:55→16:05)
--- NOTE | 2018-11-24 05:00 | NUR ---
Received to room 2012, at 0420 accompanied by MDs and surgical crew. Placed on ventilator, to monitor and storage bin tender, arterial line pressure monitored. Chest tubes to suction at 20 cm. Rosenberg cath to gravity drainage. Dressings are dry and intact. See assessment record. Vent settings per anesthesia; Pt awake, GRACE, agitated/anxious; [id number], medicated w/morphine for anxiety w/o relief, diprivan gtt started per anesthesia, pt less agitated, BP 140-150s, orders received for cardene but not needed since pt now sleeping; pt remains apaced, w/rate increased to [address] Marcano; minimal bloody CT output, new pleurovac; good UO; prevena to sternal incision;
[2018-11-24 05:01] LABS: ABG BASE EXCESS -5.5 mmol/L (-2.0-3.0); ABG HCO3 20.5 mmol/L (22.0-26.0); ABG PCO2 (T) 41.9 mmHg (32.0-45.0); ABG PH (T) 7.308 (7.350-7.450); ABG PO2 (T) 122.9 mmHg (83-108); FCOHb 0.2 % (0.5-1.5); FMetHb 0.2 % (0.3-1.12); FO2Hb 97.6 % (94-100); MINUTE VOLUME 8 L/min; PEEP 5 cm H2O; RESPIRATORY RATE 12 b/min; TIDAL VOLUME 500 mL; TOTAL HEMOGLOBIN 11.9 G/dl (12.0-16.0)
[2018-11-24 05:08] LABS: ALANINE AMINOTRANSFERASE 26 U/L (12-78); ALBUMIN 2.7 G/DL (3.4-5.0); ALBUMIN/GLOBULIN RATIO 1.1 (1.1-1.5); ALKALINE PHOSPHATASE 47 IU/L (46-116); ANION GAP 7 (8-16); ASPARTATE AMINO TRANSFERASE 60 U/L (10-37); BILIRUBIN,TOTAL 1.5 MG/DL (0.1-1.0); BLOOD UREA NITROGEN 26 MG/DL (7-18); BUN/CREATININE RATIO 31.3 (6.6-38.0); CALCIUM 7.3 MG/DL (8.5-10.1); CHLORIDE 101 MMOL/L (99-107); CREATININE 0.83 MG/DL (0.40-0.90); GLUCOSE 143 MG/DL (70-104); PHOSPHORUS 3.4 MG/DL (2.3-4.5); POTASSIUM 4.9 MMOL/L (3.5-5.1); SODIUM 131 MMOL/L (135-145); TOTAL CARBON DIOXIDE 23.1 MMOL/L (24-32); TOTAL PROTEIN 5.2 G/DL (6.4-8.2); eGFR 68 ML/MIN
[2018-11-24 05:21] LABS: BASOPHILS # (AUTO) 0.1 X10'3 (0-0.2); BASOPHILS % (AUTO) 0.4 % (0-1); EOSINOPHILS % (AUTO) 0.2 % (0-6); HEMATOCRIT 32.4 % (35.0-45.0); LYMPHOCYTES # (AUTO) 1.2 X10'3 (1.1-4.8); LYMPHOCYTES % (AUTO) 8.6 % (21-51); MEAN CORPUSCULAR HEMOGLOBIN 30.3 PG (27.0-31.0); NEUTROPHILS # (AUTO) 11.4 X10'3 (1.8-7.7); NEUTROPHILS % (AUTO) 83.8 % (42-75); PLATELET COUNT 84 X10'3 (140-440); RED BLOOD COUNT 3.64 X10'6 (4.20-5.60); RED CELL DISTRIBUTION WIDTH 14.1 % (11.5-14.5); WHITE BLOOD COUNT 13.6 X10'3 (4.5-11.0)
[2018-11-24 05:30] LABS: INR 1.2 INR; PARTIAL THROMBOPLASTIN TIME 33 SECONDS (22-32)
--- NOTE | 2018-11-24 06:15 | NUR ---
CXR checked by Md; ETT ok'd; am labs WNL, pt awakens easily, able to patterson but not following commands; update given to by Dr. Marcano. Report given to Renae, questions answered.
--- NOTE | 2018-11-24 06:30 | NUR ---
Patient in room CICU 2011. I have received report from katie and had the opportunity to ask questions and assume patient care.
[2018-11-24] MEDS: sodium chloride 0.45% 1,000 ML IV SCH (06:56)
[2018-11-24] MEDS ORDERED: propofol 1000mg/100ml bottle 100 ML IV PRN (07:00)
[2018-11-24] MEDS: magnesium 2GM in 50ml NS 50 ML IV PRN ×2 (07:13→13:49)
[2018-11-24] MEDS: docusate sod 100mg capsule PO SCH ×2 (07:14→19:49)
[2018-11-24] MEDS: aspirin 81mg tab.chew PO SCH (07:14)
[2018-11-24] MEDS: pantoprazole 40mg Tablet.DR PO SCH (07:14)
[2018-11-24] MEDS: levoTHYROXINE 112mcg tablet PO SCH (07:15)
[2018-11-24] MEDS: FLUoxetine 20mg capsule PO SCH (07:15)
--- NOTE | 2018-11-24 07:20 | NUR ---
pt awake- patterosn, legs up, not following commands. diprivan bolus x 3 and ms 4mg ivp - relaxed better after diprivan increased. mag replacing. ct output wnl.
[2018-11-24 08:45] LABS: ABG BASE EXCESS -2.4 mmol/L (-2.0-3.0); ABG HCO3 22.2 mmol/L (22.0-26.0); ABG PCO2 (T) 38.7 mmHg (32.0-45.0); ABG PO2 (T) 101.7 mmHg (83-108); FCOHb 0.5 % (0.5-1.5); FMetHb 0.1 % (0.3-1.12); FO2Hb 96.4 % (94-100); MINUTE VOLUME 11 L/min; PATIENT TEMPERATURE 37.7; PEEP 5 cm H2O; RESPIRATORY RATE (OBSERVED) 25 b/min; TOTAL HEMOGLOBIN 11.3 G/dl (12.0-16.0)
[2018-11-24 10:34] LABS: BASOPHILS % (AUTO) 0.3 % (0-1); EOSINOPHILS % (AUTO) 0.2 % (0-6); HEMATOCRIT 29.5 % (35.0-45.0); HEMOGLOBIN 9.8 g/dl (12.0-16.0); LYMPHOCYTES # (AUTO) 1.4 X10'3 (1.1-4.8); LYMPHOCYTES % (AUTO) 11.5 % (21-51); MEAN CORPUSCULAR HEMOGLOBIN 29.6 PG (27.0-31.0); MEAN CORPUSCULAR HGB CONC 33.4 g/dL (33.0-36.5); MEAN CORPUSCULAR VOLUME 88.7 FL (78-98); MONOCYTES # (AUTO) 1.2 X10'3 (0-0.9); NEUTROPHILS # (AUTO) 9.6 X10'3 (1.8-7.7); PLATELET COUNT 93 X10'3 (140-440); RED BLOOD COUNT 3.33 X10'6 (4.20-5.60); RED CELL DISTRIBUTION WIDTH 14.2 % (11.5-14.5); WHITE BLOOD COUNT 12.3 X10'3 (4.5-11.0)
[2018-11-24 10:43] LABS: ALANINE AMINOTRANSFERASE 26 U/L (12-78); ALBUMIN 2.5 G/DL (3.4-5.0); ALKALINE PHOSPHATASE 38 IU/L (46-116); ANION GAP 3 (8-16); ASPARTATE AMINO TRANSFERASE 58 U/L (10-37); BLOOD UREA NITROGEN 19 MG/DL (7-18); BUN/CREATININE RATIO 31.7 (6.6-38.0); CALCIUM 7.5 MG/DL (8.5-10.1); CHLORIDE 103 MMOL/L (99-107); GLUCOSE 116 MG/DL (70-104); MAGNESIUM 2.4 MG/DL (1.5-2.4); SODIUM 132 MMOL/L (135-145); TOTAL CARBON DIOXIDE 26.4 MMOL/L (24-32); eGFR > 90 ML/MIN
--- NOTE | 2018-11-24 15:00 | NUR ---
call to dr negrita rincon to extubate,
--- NOTE | 2018-11-24 15:15 | NUR ---
extubated to 3lnc. pt awake, but anxious.small ct output over day.
--- NOTE | 2018-11-24 16:00 | NUR ---
PT MORE AAKE AND COOPERATIVE- MS 4MG TOLERATED WELL
[2018-11-24] MEDS ORDERED: furosemide 40mg/4ml inj IV ONE (16:05)
--- NOTE | 2018-11-24 18:20 | NUR ---
Patient in room CICU 2011. I have received report from Kellen HENDRICKS and had the opportunity to ask questions and assume patient care. Pt on 3LNC with spo2 at 97%, NS at TKO to RIJ with CVP transduced, Art line to right wrist transduced, CT to suction, FC to gravity drainage, Pacer wires in place, pt currently A paced at 80bpm, no c/o pain, no s/s of distress. All monitoring alarms audible. Will continue to monitor.
[2018-11-24] MEDS: HYDROcodone/acetaminophen 10/325mg tab PO PRN (19:50)
--- NOTE | 2018-11-24 23:40 | NUR ---
Ed called to inquire about pt condition, all questions answered.
--- NOTE | 2018-11-24 23:52 | NUR ---
Pt turning frequently, pt requirers frequent reminders regarding sternal precautions.
[2018-11-25] VITALS (22 sets, daily range): BP systolic 110–154; BP diastolic 38–77
[2018-11-25] MEDS: HYDROcodone/acetaminophen 10/325mg tab PO PRN ×5 (00:10→20:51)
[2018-11-25] MEDS: magnesium 4gm in 100ml NS 100 ML IV PRN (04:56)
--- NOTE | 2018-11-25 05:09 | NUR ---
PRN pain medication given PRN as ordered, pt is consistently requiring reminders for sternal precautions.
--- NOTE | 2018-11-25 06:17 | NUR ---
Called lab regarding CBC still pending, was delivered at 0351. Chemistry is completed. Lab running results now.
--- NOTE | 2018-11-25 06:47 | NUR ---
Problems reprioritized. Patient report given, questions answered & plan of care reviewed with Alexa HENDRICKS.
[2018-11-25] MEDS: docusate sod 100mg capsule PO SCH ×2 (08:37→20:05)
[2018-11-25] MEDS: FLUoxetine 20mg capsule PO SCH (08:37)
[2018-11-25] MEDS: Neutra Phos packet PO PRN ×2 (08:37→20:06)
[2018-11-25] MEDS: aspirin 81mg tab.chew PO SCH (08:37)
[2018-11-25] MEDS: levoTHYROXINE 112mcg tablet PO SCH (08:37)
[2018-11-25] MEDS: pantoprazole 40mg Tablet.DR PO SCH (08:47)
[2018-11-25] MEDS: magnesium hydroxide 30ml (MOM) UD suspension PO PRN (08:47)
[2018-11-25] MEDS ORDERED: diphenhydrAMINE 25mg capsule PO PRN (09:25)
[2018-11-25] MEDS ORDERED: ketorolac tromethamine 15mg/ml inj. IM PRN (09:25)
[2018-11-25] MEDS ORDERED: furosemide 40mg/4ml inj IV ONE (10:50)
[2018-11-25] MEDS: sodium chloride 0.45% 1,000 ML IV SCH (11:54)
--- NOTE | 2018-11-25 17:45 | NUR ---
Radial art line dc'd per ok with Dr Marcano. no bleeding at the site or hematoma.
--- NOTE | 2018-11-25 18:20 | NUR ---
Patient in room CICU 2011. I have received report from Alexa HENDRICKS and had the opportunity to ask questions and assume patient care. PT on 1.5LNC with spo2 at 96%, pacer wires attached and on pt is A paced at 60bpm. All monitoring alarms audible.
[2018-11-25] MEDS ORDERED: amiodarone 150mg/dext, iso-os 100 ML IV ONE (23:45)
[2018-11-25] MEDS: ketorolac tromethamine 15mg/ml inj. IV PRN (23:51)
[2018-11-26] VITALS (21 sets, daily range): BP systolic 95–160; BP diastolic 31–83
[2018-11-26] MEDS: amiodarone/D5 360MG/200ML BAG 200 ML IV SCH ×5 (00:03→19:46)
--- NOTE | 2018-11-26 01:17 | NUR ---
Late entry: 2233 pt converted from A paced at 60bpm to BBB at 90BPM 2336 HR increased to 125bpm BBB 2340 HR 130-150 irregular, 12 lead ordered, pt increasingly restless, when asked location stated "[facility]" 2345 HR 150-160 Atrial flutter on 12lead, Dr Marcano notified or HR and rhythm and disorientation, Amio gtt ordered with bolus dose, clarified order for Toradol, order changed from IM to IV. 0015 spoke with Ed on the phone gave update on pt and transferred call into room for pt to speak with .
--- NOTE | 2018-11-26 02:06 | NUR ---
pt apologizing for prior behavior, restlessness decreased. Addendum: 11/26/18 at 0207 by Marisol Chowdhury RN pt orientation improving, knows location and purpose for admission.
[2018-11-26 03:24] LABS: BASOPHILS # (AUTO) 0.1 X10'3 (0-0.2); BASOPHILS % (AUTO) 0.7 % (0-1); EOSINOPHILS # (AUTO) 0.2 X10'3 (0-0.9); EOSINOPHILS % (AUTO) 1.8 % (0-6); HEMATOCRIT 22.7 % (35.0-45.0); HEMOGLOBIN 7.9 g/dl (12.0-16.0); LYMPHOCYTES # (AUTO) 1.4 X10'3 (1.1-4.8); LYMPHOCYTES % (AUTO) 14.4 % (21-51); MEAN CORPUSCULAR HEMOGLOBIN 30.8 PG (27.0-31.0); MEAN CORPUSCULAR HGB CONC 34.7 g/dL (33.0-36.5); MEAN CORPUSCULAR VOLUME 88.6 FL (78-98); MEAN PLATELET VOLUME 6.8 FL (7.4-10.4); MONOCYTES # (AUTO) 1.3 X10'3 (0-0.9); NEUTROPHILS # (AUTO) 6.9 X10'3 (1.8-7.7); NEUTROPHILS % (AUTO) 70.1 % (42-75); PLATELET COUNT 152 X10'3 (140-440); RED BLOOD COUNT 2.56 X10'6 (4.20-5.60); RED CELL DISTRIBUTION WIDTH 13.8 % (11.5-14.5); WHITE BLOOD COUNT 9.9 X10'3 (4.5-11.0)
[2018-11-26 03:42] LABS: ALBUMIN 2.5 G/DL (3.4-5.0); ANION GAP 3 (8-16); BLOOD UREA NITROGEN 11 MG/DL (7-18); BUN/CREATININE RATIO 16.4 (6.6-38.0); CALCIUM 7.8 MG/DL (8.5-10.1); CHLORIDE 98 MMOL/L (99-107); CREATININE 0.67 MG/DL (0.40-0.90); GLUCOSE 116 MG/DL (70-104); SODIUM 130 MMOL/L (135-145); TOTAL CARBON DIOXIDE 29.3 MMOL/L (24-32); eGFR 88 ML/MIN
[2018-11-26 05:11] LABS: ACTIVATED CLOTTING TIME 146 SEC (101-148)
--- NOTE | 2018-11-26 05:24 | NUR ---
Pt requiring consistent reminders for sternal precautions.
--- NOTE | 2018-11-26 06:23 | NUR ---
Problems reprioritized. Patient report given, questions answered & plan of care reviewed with Alexa HENDRICKS.
[2018-11-26] MEDS: magnesium hydroxide 30ml (MOM) UD suspension PO PRN (08:54)
[2018-11-26] MEDS: ketorolac tromethamine 15mg/ml inj. IV PRN ×2 (08:55→19:49)
[2018-11-26] MEDS: docusate sod 100mg capsule PO SCH ×2 (08:56→19:44)
[2018-11-26] MEDS: pantoprazole 40mg Tablet.DR PO SCH (08:56)
[2018-11-26] MEDS: levoTHYROXINE 112mcg tablet PO SCH (08:56)
[2018-11-26] MEDS: aspirin 81mg tab.chew PO SCH (08:56)
[2018-11-26] MEDS: FLUoxetine 20mg capsule PO SCH (08:56)
[2018-11-26] MEDS: potassium Cl 20 mEq SR tablet PO PRN (08:56)
[2018-11-26 11:55] LABS: MAGNESIUM 1.9 MG/DL (1.5-2.4)
--- NOTE | 2018-11-26 13:59 | NUR ---
Patient had 5 beat run of vta, at 1317, Eliseo Davis notified. Electrolytes being replaced.
--- NOTE | 2018-11-26 14:52 | NUR ---
Appetite improving after surgery, eating average of 50-74% of no concentrated sweets. Pt s/p mitral valve repair and L atrial appendage ligation. Will need written and verbal post cardiac surgery diet education. Will monitor appetite, PO Intake, and any need for ONS. Rec: 1. continue NCS diet 2. monitor for ONS needs 3. routine bowel care 4. wt per rx Addendum: 11/26/18 at [address] Amended: Links added.
--- NOTE | 2018-11-26 18:22 | NUR ---
Patient in room CICU 2011. I have received report from Alexa HENDRICKS and had the opportunity to ask questions and assume patient care. Pt up in chair at bedside, on room air, A paced via pacing wire, provina wound vac to sternal incision, good seal, amio gtt infusing per provider orders, CT to suction, frederick to gravity drainage. See interventions for further information. Will continue to monitor.
--- NOTE | 2018-11-26 19:04 | NUR ---
pt tearful, speaking with mother on the phone, pt asked me to speak with mother and update her on information, all questions answered.
--- NOTE | 2018-11-26 22:45 | NUR ---
called, updated on pt condition. Pt LOC is improved from previous HS.
[2018-11-27] VITALS (23 sets, daily range): BP systolic 91–152; BP diastolic 30–88
[2018-11-27 03:38] LABS: BASOPHILS % (AUTO) 0.5 % (0-1); EOSINOPHILS # (AUTO) 0.2 X10'3 (0-0.9); EOSINOPHILS % (AUTO) 3.1 % (0-6); LYMPHOCYTES # (AUTO) 1.1 X10'3 (1.1-4.8); LYMPHOCYTES % (AUTO) 15.8 % (21-51); MEAN CORPUSCULAR HEMOGLOBIN 30.9 PG (27.0-31.0); MEAN CORPUSCULAR HGB CONC 34.6 g/dL (33.0-36.5); MEAN CORPUSCULAR VOLUME 89.3 FL (78-98); MEAN PLATELET VOLUME 6.8 FL (7.4-10.4); MONOCYTES # (AUTO) 0.9 X10'3 (0-0.9); MONOCYTES % (AUTO) 12.9 % (2-12); NEUTROPHILS # (AUTO) 4.8 X10'3 (1.8-7.7); NEUTROPHILS % (AUTO) 67.7 % (42-75); PLATELET COUNT 179 X10'3 (140-440); RED BLOOD COUNT 2.45 X10'6 (4.20-5.60); RED CELL DISTRIBUTION WIDTH 13.5 % (11.5-14.5); WHITE BLOOD COUNT 7.1 X10'3 (4.5-11.0)
[2018-11-27 03:54] LABS: HEMATOCRIT 21.9 % (35.0-45.0); HEMOGLOBIN 7.6 g/dl (12.0-16.0)
[2018-11-27 03:55] LABS: ALBUMIN 2.3 G/DL (3.4-5.0); ANION GAP 5 (8-16); BLOOD UREA NITROGEN 12 MG/DL (7-18); BUN/CREATININE RATIO 18.2 (6.6-38.0); CALCIUM 7.9 MG/DL (8.5-10.1); CHLORIDE 98 MMOL/L (99-107); CREATININE 0.66 MG/DL (0.40-0.90); GLUCOSE 111 MG/DL (70-104); PHOSPHORUS 2.5 MG/DL (2.3-4.5); POTASSIUM 4.2 MMOL/L (3.5-5.1); SODIUM 131 MMOL/L (135-145); TOTAL CARBON DIOXIDE 28.3 MMOL/L (24-32); eGFR 89 ML/MIN
--- NOTE | 2018-11-27 04:20 | NUR ---
Called Dr. Marcano, critical Hct of 21.9 decreased from previous day of 22.7. No new orders received. Will continue to monitor.
--- NOTE | 2018-11-27 05:44 | NUR ---
FC removed, pt tolerated well. Pt up to chair at bedside, personal hygiene provided. Pt A&Ox4. Will continue to monitor.
[2018-11-27] MEDS: amiodarone/D5 360MG/200ML BAG 200 ML IV SCH (06:05)
--- NOTE | 2018-11-27 06:26 | NUR ---
Problems reprioritized. Patient report given, questions answered & plan of care reviewed with Alexa HENDRICKS.
[2018-11-27] MEDS: magnesium 4gm in 100ml NS 100 ML IV PRN (07:18)
[2018-11-27] MEDS: aspirin 81mg tab.chew PO SCH (07:18)
[2018-11-27] MEDS: docusate sod 100mg capsule PO SCH ×2 (07:18→20:27)
[2018-11-27] MEDS: levoTHYROXINE 112mcg tablet PO SCH (07:18)
[2018-11-27] MEDS: potassium Cl 20 mEq SR tablet PO PRN (07:18)
[2018-11-27] MEDS: pantoprazole 40mg Tablet.DR PO SCH (07:18)
[2018-11-27] MEDS: FLUoxetine 20mg capsule PO SCH (07:18)
[2018-11-27 09:38] LABS: PHOSPHORUS 2.4 MG/DL (2.3-4.5); POTASSIUM 4.2 MMOL/L (3.5-5.1)
[2018-11-27] MEDS ORDERED: furosemide 40mg/4ml inj IV ONE (10:10)
[2018-11-27] MEDS: sodium chloride 0.45% 1,000 ML IV SCH (11:54)
--- NOTE | 2018-11-27 18:20 | NUR ---
Patient in room CICU 2011. I have received report and had the opportunity to ask questions and assume patient care.
--- NOTE | 2018-11-27 20:00 | NUR ---
pt bathed, linens changed, central line dressing changed. pt tolerated the procedure well. will continue to monitor.
--- NOTE | 2018-11-27 22:06 | NUR ---
pt has periods of confusion. pt becomes paranoid and thinks everyob Addendum: 11/27/18 at 2210 by Marcie Roberts RN everyone is talking about or to her. Pt states " we need to stop playing games" when I walked by to check on her. when asked for clarification on what she meant by games, pt stated "like what you're doing now. you have no business here. bunch of kids" will continue to monitor.
--- NOTE | 2018-11-27 23:30 | NUR ---
pt woke up confused. pt stated pulling on her central line stating "you people are keeping me here against my will" attempted to reorient patient however was unsuccessful. pt requested to call her . offered to call her for her but she said she "didn't trust us". contacted. son is on his way in to sit w the patient. requested sitter at bedside
[2018-11-28] VITALS (17 sets, daily range): BP systolic 103–169; BP diastolic 56–94
[2018-11-28 03:04] LABS: BASOPHILS # (AUTO) 0.1 X10'3 (0-0.2); BASOPHILS % (AUTO) 0.8 % (0-1); EOSINOPHILS # (AUTO) 0.1 X10'3 (0-0.9); EOSINOPHILS % (AUTO) 1.7 % (0-6); HEMATOCRIT 28.4 % (35.0-45.0); HEMOGLOBIN 9.7 g/dl (12.0-16.0); LYMPHOCYTES % (AUTO) 14.2 % (21-51); MEAN CORPUSCULAR HEMOGLOBIN 30.6 PG (27.0-31.0); MEAN CORPUSCULAR HGB CONC 34.2 g/dL (33.0-36.5); MEAN CORPUSCULAR VOLUME 89.6 FL (78-98); MEAN PLATELET VOLUME 6.4 FL (7.4-10.4); MONOCYTES % (AUTO) 13.6 % (2-12); NEUTROPHILS # (AUTO) 4.9 X10'3 (1.8-7.7); NEUTROPHILS % (AUTO) 69.7 % (42-75); PLATELET COUNT 254 X10'3 (140-440); RED BLOOD COUNT 3.17 X10'6 (4.20-5.60); WHITE BLOOD COUNT 7.1 X10'3 (4.5-11.0)
[2018-11-28 03:14] LABS: ALANINE AMINOTRANSFERASE 34 U/L (12-78); ALBUMIN 2.7 G/DL (3.4-5.0); ALBUMIN/GLOBULIN RATIO 0.8 (1.1-1.5); ALKALINE PHOSPHATASE 54 IU/L (46-116); ANION GAP 4 (8-16); ASPARTATE AMINO TRANSFERASE 50 U/L (10-37); BILIRUBIN,TOTAL 0.8 MG/DL (0.1-1.0); BLOOD UREA NITROGEN 6 MG/DL (7-18); BUN/CREATININE RATIO 9.5 (6.6-38.0); CALCIUM 8.4 MG/DL (8.5-10.1); CHLORIDE 99 MMOL/L (99-107); CREATININE 0.63 MG/DL (0.40-0.90); GLUCOSE 115 MG/DL (70-104); MAGNESIUM 1.7 MG/DL (1.5-2.4); PHOSPHORUS 3.1 MG/DL (2.3-4.5); POTASSIUM 4.3 MMOL/L (3.5-5.1); SODIUM 131 MMOL/L (135-145); TOTAL CARBON DIOXIDE 28.4 MMOL/L (24-32); TOTAL PROTEIN 6.1 G/DL (6.4-8.2); eGFR > 90 ML/MIN
[2018-11-28] MEDS: potassium Cl 20 mEq SR tablet PO PRN ×2 (05:28→07:47)
[2018-11-28] MEDS: magnesium 2GM in 50ml NS 50 ML IV PRN (05:29)
--- NOTE | 2018-11-28 05:35 | NUR ---
pt refused to take her replacement for potassium and magnesium based on her lab values. insists she will not take any medications until she can see the doctor.
[2018-11-28] MEDS: docusate sod 100mg capsule PO SCH ×2 (07:11→20:00)
[2018-11-28] MEDS: aspirin 81mg tab.chew PO SCH (07:52)
[2018-11-28] MEDS: pantoprazole 40mg Tablet.DR PO SCH (07:52)
[2018-11-28] MEDS: FLUoxetine 20mg capsule PO SCH (07:52)
[2018-11-28] MEDS: levoTHYROXINE 112mcg tablet PO SCH (07:52)
[2018-11-28] MEDS: furosemide 20MG tablet PO SCH (07:53)
[2018-11-28] MEDS: magnesium 4gm in 100ml NS 100 ML IV PRN (07:57)
[2018-11-28] MEDS ORDERED: magnesium 2GM in 50ml NS 50 ML IV PRN (08:50)
[2018-11-28] MEDS ORDERED: magnesium Cl slow-release 64mg tablet PO PRN (08:50)
[2018-11-28] MEDS ORDERED: potassium Cl 40MEQ/NS 500ml 500 ML IV PRN ×2 (08:50)
[2018-11-28] MEDS ORDERED: potassium Cl 20 mEq SR tablet PO PRN ×2 (08:50)
[2018-11-28] MEDS ORDERED: magnesium 4gm in 100ml NS 100 ML IV PRN (08:50)
--- NOTE | 2018-11-28 12:50 | NUR ---
Patient refusing to allow RN to start and IV in order to remove the central line. Eliseo Davis PA aware. He reports he will try later and put one in himself as the patient is requesting "only Eliseo can try." Will continue to educate the patient on the importance of removing a CL. Patient allowed RN to change CL dressing.
--- NOTE | 2018-11-28 15:13 | NUR ---
Patient in room CICU 2011. I have received report from Onur HENDRICKS and had the opportunity to ask questions. The patient has not yet arrived from the ICU.
--- NOTE | 2018-11-28 15:38 | NUR ---
Patient transferred up to [facility] 313; report given to Trista HENDRICKS with all questions answered. All belongings sent with patient including cell phone, dairy specialist, purse, toiletries, robe, jacket, shoes, and clothes. Eliseo BULLOCK at bedside to attempt an IV.
--- NOTE | 2018-11-28 16:41 | NUR ---
Patient getting out of bed unassisted despite being educated/instructed to call for help. Nearly pulled away from pacer wires. RN assisted patient back to bed and re-situated all monitor wires/pacer wires. Sitter order placed per verbal okay from Eliseo Davis. Patient educated to call for help before getting out of bed. Bed alarm placed.
--- NOTE | 2018-11-28 17:40 | NUR ---
Problems reprioritized. Patient report given, questions answered & plan of care reviewed with Doug HENDRICKS.
--- NOTE | 2018-11-28 17:49 | NUR ---
Patient in room MED 313. I have received report from ELADIO Weston and had the opportunity to ask questions and assume patient care.
--- NOTE | 2018-11-28 17:50 | NUR ---
Patient is in bed with sitter at bedside. and mother are also present. Patient's EKG leads are off. Have tried multiple different approaches to place the leads back on patient but she continues to refuse. Will reapproach later.
--- NOTE | 2018-11-28 19:26 | NUR ---
Patient continues to refuse leads. has left for the evening. Sitter remains at bedside. Have attempted to replace leads multiple times. Patient continues to refuse.
[2018-11-28] MEDS: magnesium Cl slow-release 64mg tablet PO SCH (20:00)
[2018-11-28] MEDS: potassium Cl 20 mEq SR tablet PO SCH (20:00)
[2018-11-28] MEDS ORDERED: haloperidol lactate 5mg/ml inj IM ONE ×2 (20:20→20:55)
[2018-11-28] MEDS ORDERED: haloperidol lactate 5mg/ml inj IM PRN (20:35)
[2018-11-28] MEDS ORDERED: ziprasidone IM 20mg inj **IM only IM ONE ×2 (21:15→21:30)
--- NOTE | 2018-11-28 21:15 | NUR ---
Approximately 2030 on 11/28/18 Pt Mer Sequeira became combative, threatening, and a danger to self. I was in a different room when I heard noises coming from room 313 and noticed the charge nurse and two nursing assistants trying to calm down the patient. The patient was reoriented and seemed to respond to being redirected well. Moments later I saw that she reverted back to removing wires and potentially pulling her pacer wires from her chest. I was able to keep her from removing them and called for help. The patient then became highly combative, irrational and threatening. She tried biting, kicking, slapping at staff members as well as trying to pull the pacer wires again. The patient was laughing weirdly and claiming that she was going to and she was going to take all of us with her, then continued to try and pull her pacer wires out. The Kay Sanchez was called sometime afterward. Once patient was prevented from attacking staff or herself the MD was called to get medication to calm her but that did not assuage her aggression. The MD was eventually called again for physical restraints. She still occasionally tries to remove restraints and strike at staff.
--- NOTE | 2018-11-28 22:18 | NUR ---
spoke to for second time since jerry felton called for patient. Informed him of the current plan of care and her current status. He has been informed of all of the following: that all vitals are stable at this time. Patients continues to pull at restraints, is attempting to bite staff, is attempting to pull pacer wires out, and is using her teeth to remove restraints. Has broken through one set of soft restraints. Patient used her teeth to remove IV from left forearm- immediate bruising noted at IV site ( states she was threatening to do this prior to him leaving) Pacer wires are still intact- we have reinforced with tape and have attempted to leave in a place that she cant access with her teeth or hands. Patient remains agitated and is attempting to remove life saving devices such as the external pacer. Sitter remains in room and continues to assist patient to not bite at restraints, to not remove pacer wires from her chest, and to not injure herself further. states understanding is states that he is hopeful that this will clear sooner rather than later.
[2018-11-29 03:00] VITALS: BP 122/63
--- NOTE | 2018-11-29 03:13 | NUR ---
Spoke with patient about releasing restraints from legs but to not kick at staff members. Patient stated she could not promise she wouldnt try to kick personnel.
--- NOTE | 2018-11-29 06:00 | NUR ---
pt refused vitals. will continue to monitor
[2018-11-29 06:38] LABS: BASOPHILS # (AUTO) 0.1 X10'3 (0-0.2); BASOPHILS % (AUTO) 0.7 % (0-1); EOSINOPHILS # (AUTO) 0.1 X10'3 (0-0.9); EOSINOPHILS % (AUTO) 1.3 % (0-6); HEMATOCRIT 33.4 % (35.0-45.0); HEMOGLOBIN 11.2 g/dl (12.0-16.0); LYMPHOCYTES # (AUTO) 1.5 X10'3 (1.1-4.8); LYMPHOCYTES % (AUTO) 15.5 % (21-51); MEAN CORPUSCULAR HGB CONC 33.5 g/dL (33.0-36.5); MEAN CORPUSCULAR VOLUME 89.4 FL (78-98); MONOCYTES # (AUTO) 1.3 X10'3 (0-0.9); NEUTROPHILS # (AUTO) 6.8 X10'3 (1.8-7.7); NEUTROPHILS % (AUTO) 69.5 % (42-75); PLATELET COUNT 309 X10'3 (140-440); RED BLOOD COUNT 3.74 X10'6 (4.20-5.60); RED CELL DISTRIBUTION WIDTH 14.3 % (11.5-14.5); WHITE BLOOD COUNT 9.7 X10'3 (4.5-11.0)
[2018-11-29 06:47] LABS: ALBUMIN 2.6 G/DL (3.4-5.0); ANION GAP 7 (8-16); BLOOD UREA NITROGEN 6 MG/DL (7-18); BUN/CREATININE RATIO 7.7 (6.6-38.0); CALCIUM 8.5 MG/DL (8.5-10.1); CHLORIDE 101 MMOL/L (99-107); CREATININE 0.78 MG/DL (0.40-0.90); GLUCOSE 100 MG/DL (70-104); MAGNESIUM 1.8 MG/DL (1.5-2.4); POTASSIUM 3.8 MMOL/L (3.5-5.1); SODIUM 137 MMOL/L (135-145); TOTAL CARBON DIOXIDE 29.2 MMOL/L (24-32); eGFR 73 ML/MIN
--- NOTE | 2018-11-29 07:00 | NUR ---
PATIENT KICKING AND SPITTING AT STAFF MEMBERS. PROVIDED CALM REASSURING ENVIRONMENT, RE-ORIENTED PATIENT.
[2018-11-29] MEDS: pantoprazole 40mg Tablet.DR PO SCH (07:30)
[2018-11-29] MEDS: docusate sod 100mg capsule PO SCH ×2 (08:00→20:37)
[2018-11-29] MEDS: aspirin 81mg tab.chew PO SCH (08:00)
[2018-11-29] MEDS: levoTHYROXINE 112mcg tablet PO SCH (08:00)
[2018-11-29] MEDS: potassium Cl 20 mEq SR tablet PO SCH ×2 (08:00→20:00)
[2018-11-29] MEDS: furosemide 20MG tablet PO SCH (08:00)
[2018-11-29] MEDS: K and/or MAG REPLACEMENT MC SCH (08:00)
[2018-11-29] MEDS: magnesium Cl slow-release 64mg tablet PO SCH ×2 (08:00→20:00)
--- NOTE | 2018-11-29 08:00 | NUR ---
pt combative and resistive to care. pt refused complete physical assessment.
--- NOTE | 2018-11-29 08:30 | NUR ---
PATIENT'S SON AT BEDSIDE, BROUGHT FOOD FROM VENDING MACHINE BECAUSE PATIENT SAYS SHE WILL NOT DRINK HOSPITAL WATER OR EAT HOSPITAL FOOD BECAUSE IT IS "POISONED". PATIENT SIPPING WATER AND EATING A LITTLE FOOD THAT SON BROUGHT. [facility] VOGEL.
[2018-11-29 11:00] VITALS: BP 95/52
--- NOTE | 2018-11-29 13:11 | NUR ---
BP 84/48 CALLED [facility] GONZALEZ AND INFORMED HIM OF BLOOD PRESSURE OF 84/48, HR 102 (UNCHANGED). ACKNOWLEDGED AND NO NEW ORDERS AT THIS TIME. WILL CONTINUE TO MONITOR.
[2018-11-29 15:00] VITALS: BP 106/47
[2018-11-29 18:00] VITALS: BP 95/62
--- NOTE | 2018-11-29 18:10 | NUR ---
Patient in room MED 313. I have received report from Mark and had the opportunity to ask questions and assume patient care.
[2018-11-29 22:00] VITALS: BP 106/65
--- NOTE | 2018-11-29 22:00 | NUR ---
Pt had bed bath, responded well to intervention. Thanked staff and more cooperative than previous night.
[2018-11-30 02:00] VITALS: BP 94/47
[2018-11-30 05:42] LABS: BASOPHILS # (AUTO) 0.1 X10'3 (0-0.2); BASOPHILS % (AUTO) 0.7 % (0-1); EOSINOPHILS # (AUTO) 0.2 X10'3 (0-0.9); EOSINOPHILS % (AUTO) 1.7 % (0-6); HEMATOCRIT 32.5 % (35.0-45.0); LYMPHOCYTES # (AUTO) 1.9 X10'3 (1.1-4.8); LYMPHOCYTES % (AUTO) 18.1 % (21-51); MEAN CORPUSCULAR HEMOGLOBIN 30.3 PG (27.0-31.0); MEAN CORPUSCULAR HGB CONC 33.7 g/dL (33.0-36.5); MONOCYTES % (AUTO) 9.5 % (2-12); NEUTROPHILS # (AUTO) 7.4 X10'3 (1.8-7.7); PLATELET COUNT 305 X10'3 (140-440); RED BLOOD COUNT 3.62 X10'6 (4.20-5.60); WHITE BLOOD COUNT 10.6 X10'3 (4.5-11.0)
[2018-11-30 05:44] LABS: ALBUMIN 2.5 G/DL (3.4-5.0); ANION GAP 6 (8-16); BLOOD UREA NITROGEN 14 MG/DL (7-18); BUN/CREATININE RATIO 17.7 (6.6-38.0); CALCIUM 8.3 MG/DL (8.5-10.1); CHLORIDE 100 MMOL/L (99-107); CREATININE 0.79 MG/DL (0.40-0.90); GLUCOSE 105 MG/DL (70-104); MAGNESIUM 1.7 MG/DL (1.5-2.4); POTASSIUM 3.6 MMOL/L (3.5-5.1); SODIUM 135 MMOL/L (135-145); TOTAL CARBON DIOXIDE 29.3 MMOL/L (24-32); eGFR 72 ML/MIN
[2018-11-30 06:00] VITALS: BP 106/61
[2018-11-30] MEDS: levoTHYROXINE 112mcg tablet PO SCH (07:33)
[2018-11-30] MEDS: pantoprazole 40mg Tablet.DR PO SCH (07:33)
[2018-11-30] MEDS: potassium Cl 20 mEq SR tablet PO SCH ×2 (07:34→20:36)
[2018-11-30] MEDS: docusate sod 100mg capsule PO SCH ×2 (07:34→20:36)
[2018-11-30] MEDS: magnesium Cl slow-release 64mg tablet PO SCH ×2 (07:34→20:36)
[2018-11-30] MEDS: aspirin 81mg tab.chew PO SCH (07:35)
[2018-11-30] MEDS: furosemide 20MG tablet PO SCH (07:38)
[2018-11-30] MEDS: K and/or MAG REPLACEMENT MC SCH (08:00)
--- NOTE | 2018-11-30 10:59 | NUR ---
patient c/o headache. states excedrine only thing that works. KOBE Cook called. New orders received: Patient can have family bring OTC excedrine to use in hospital. In the meantime advil 400mg and tylenol 650mg for moderate-severe pain 4-10.
[2018-11-30 11:00] VITALS: BP 98/57
[2018-11-30] MEDS ORDERED: ibuprofen 100 MG/5 ML oral susp PO PRN (11:05)
[2018-11-30] MEDS ORDERED: acetaminophen 325mg tablet PO PRN (11:05)
[2018-11-30] MEDS ORDERED: aspirin/acetaminophen/caffeine tablet PO PRN (14:25)
[2018-11-30 15:00] VITALS: BP 98/54
[2018-11-30] MEDS: FLUoxetine 20mg capsule PO SCH (15:16)
[2018-11-30 18:00] VITALS: BP 99/59
--- NOTE | 2018-11-30 18:00 | NUR ---
Patient in room MED 313. I have received report from ELADIO Flores and had the opportunity to ask questions and assume patient care.
--- NOTE | 2018-11-30 18:30 | NUR ---
Educated patient on the importance of monitoring blood sugars regularly and then administering insulin appropriately. Will continue to monitor and educate as needed. Patient very receptive.
[2018-11-30] MEDS: buPROPion SR 150mg tablet PO SCH (20:37)
[2018-11-30 22:00] VITALS: BP 104/57
[2018-12-01 02:00] VITALS: BP 106/66
[2018-12-01 05:28] LABS: ALBUMIN 2.5 G/DL (3.4-5.0); ANION GAP 6 (8-16); BLOOD UREA NITROGEN 12 MG/DL (7-18); BUN/CREATININE RATIO 15.4 (6.6-38.0); CALCIUM 8.1 MG/DL (8.5-10.1); CHLORIDE 99 MMOL/L (99-107); CREATININE 0.78 MG/DL (0.40-0.90); GLUCOSE 97 MG/DL (70-104); MAGNESIUM 1.6 MG/DL (1.5-2.4); POTASSIUM 3.8 MMOL/L (3.5-5.1); SODIUM 131 MMOL/L (135-145); eGFR 73 ML/MIN
[2018-12-01 05:38] LABS: BASOPHILS # (AUTO) 0.1 X10'3 (0-0.2); BASOPHILS % (AUTO) 0.8 % (0-1); EOSINOPHILS # (AUTO) 0.3 X10'3 (0-0.9); HEMATOCRIT 29.4 % (35.0-45.0); HEMOGLOBIN 10.1 g/dl (12.0-16.0); LYMPHOCYTES # (AUTO) 1.2 X10'3 (1.1-4.8); LYMPHOCYTES % (AUTO) 14.6 % (21-51); MEAN CORPUSCULAR HEMOGLOBIN 30.7 PG (27.0-31.0); MEAN CORPUSCULAR HGB CONC 34.4 g/dL (33.0-36.5); MEAN CORPUSCULAR VOLUME 89.2 FL (78-98); MEAN PLATELET VOLUME 6.2 FL (7.4-10.4); MONOCYTES # (AUTO) 0.8 X10'3 (0-0.9); MONOCYTES % (AUTO) 9.6 % (2-12); NEUTROPHILS # (AUTO) 6.1 X10'3 (1.8-7.7); PLATELET COUNT 279 X10'3 (140-440); RED CELL DISTRIBUTION WIDTH 14.3 % (11.5-14.5); WHITE BLOOD COUNT 8.5 X10'3 (4.5-11.0)
[2018-12-01] MEDS ORDERED: ASPI-1265 PO (07:28)
[2018-12-01] MEDS ORDERED: COL100C PO (07:28)
[2018-12-01] MEDS: aspirin 81mg tab.chew PO SCH (07:28)
[2018-12-01] MEDS: levoTHYROXINE 112mcg tablet PO SCH (07:28)
[2018-12-01] MEDS: buPROPion SR 150mg tablet PO SCH (07:28)
[2018-12-01] MEDS: potassium Cl 20 mEq SR tablet PO SCH (07:28)
[2018-12-01] MEDS: FLUoxetine 20mg capsule PO SCH (07:28)
[2018-12-01] MEDS: pantoprazole 40mg Tablet.DR PO SCH (07:29)
[2018-12-01] MEDS: furosemide 20MG tablet PO SCH (07:29)
[2018-12-01] MEDS: magnesium Cl slow-release 64mg tablet PO SCH (07:29)
[2018-12-01] MEDS: docusate sod 100mg capsule PO SCH (07:29)
[2018-12-01] MEDS: K and/or MAG REPLACEMENT MC SCH (08:00)
[2018-12-01 08:16] VITALS: BP 95/53
--- NOTE | 2018-12-01 12:48 | NUR ---
Pt given DC instructions, IV's removed. Tip intact. Pt awaiting for ride.
--- NOTE | 2018-12-01 13:12 | NUR ---
Pt arrived, pt assisted to pov in by hospital staff.
--- NOTE | 2018-12-01 16:43 | NUR ---
Pt d/c prior to RD visit for CABG ed. Written CABG ed w/ RD contact information in case further questions mailed to pt home address. Addendum: 12/01/18 at [address] Amended: Links added.
== END 2018-12-01 13:00 | disposition home health service (06) | DRG 219 ==
LOC: PAS IN 05:33 → EDSTATUS 07:30 → CICU 2S 10:53 → MED 3N 11-28 15:30
PROVIDERS: ADMIT Thoracic Surgery (Cardiothoracic Vascular Surgery); ATTEND Thoracic Surgery (Cardiothoracic Vascular Surgery)
PROC: 02UJ0JZ Supplement Tricuspid Valve with Synthetic Substitute, Open Approach (ICD-10-PCS; 2018-11-21)
PROC: 02BG0ZZ Excision of Mitral Valve, Open Approach (ICD-10-PCS; 2018-11-21)
PROC: 02Q50ZZ Repair Atrial Septum, Open Approach (ICD-10-PCS; 2018-11-21)
PROC: 5A1221Z Performance of Cardiac Output, Continuous (ICD-10-PCS; 2018-11-21)
PROC: 02L70CK Occlusion of Left Atrial Appendage with Extraluminal Device, Open Approach (ICD-10-PCS; 2018-11-21)
PROC: B24BZZ4 Ultrasonography of Heart with Aorta, Transesophageal (ICD-10-PCS; 2018-11-21)
PROC: 02HV33Z Insertion of Infusion Device into Superior Vena Cava, Percutaneous Approach (ICD-10-PCS; 2018-11-21)
PROC: B548ZZA Ultrasonography of Superior Vena Cava, Guidance (ICD-10-PCS; 2018-11-21)
PROC: 02UG0JZ Supplement Mitral Valve with Synthetic Substitute, Open Approach (ICD-10-PCS; principal; 2018-11-21 07:00)
PROC: 0W3C0ZZ Control Bleeding in Mediastinum, Open Approach (ICD-10-PCS; 2018-11-24)
PROC: 30233N1 Transfusion of Nonautologous Red Blood Cells into Peripheral Vein, Percutaneous Approach (ICD-10-PCS; 2018-11-24)
DX: I08.1 Rheumatic disorders of both mitral and tricuspid valves (principal); I50.33 Acute on chronic diastolic (congestive) heart failure; R04.89 Hemorrhage from other sites in respiratory passages; I45.2 Bifascicular block; Q21.1 Atrial septal defect; D69.6 Thrombocytopenia, unspecified; I44.7 Left bundle-branch block, unspecified; I48.91 Unspecified atrial fibrillation; J44.9 Chronic obstructive pulmonary disease, unspecified; B19.20 Unspecified viral hepatitis C without hepatic coma; D64.9 Anemia, unspecified; E03.9 Hypothyroidism, unspecified; F22 Delusional disorders; F32.9 Major depressive disorder, single episode, unspecified; I11.0 Hypertensive heart disease with heart failure; I44.0 Atrioventricular block, first degree; Z78.1 Physical restraint status; Z90.710 Acquired absence of both cervix and uterus; Z79.899 Other long term (current) drug therapy; Z79.890 Hormone replacement therapy; Z79.82 Long term (current) use of aspirin; Z88.8 Allergy status to other drugs, medicaments and biological substances; Z87.891 Personal history of nicotine dependence; Z80.7 Family history of other malignant neoplasms of lymphoid, hematopoietic and related tissues; Z80.8 Family history of malignant neoplasm of other organs or systems
CPT/HCPCS: 0232T; 93312; 93325; 36415; 36600; 71045; 71046; 80048; 80053; 81001; 81003; 82330; 82435; 82570; 82803; 82947; 82948; 83036; 83735; 84100; 84132; 84295; 84300; 84443; 85018; 85025; 85347; 85384; 85610; 85730; 86885; 86900; 86901; 86920; 87070; 87088; 87207; 88300; 93005; 94002; 94003; 94010; 94760; 97110; 97116; 97161; 97530; A6255; A6257; A6449; A7000; A7048; C1751; C1769; C9113; G0378; J0131; J0282; J0690; J1250; J1265; J1630; J1644; J1815; J1885; J1940; J2001; J2060; J2150; J2250; J2270; J2370; J2405; J2704; J2720; J2795; J2930; J3010; J3370; J3475; J3480; J3486; J3490; J7030; J7120; P9016; P9045; P9047; Q0163

== ENCOUNTER 2019-06-28 07:04 | Day surgery (SDC) | payer MEDICARE ==
[~2019-06-28] VITALS: Ht 172.7 cm; Wt 72.8 kg
[2019-06-28] VITALS (7 sets, daily range): BP systolic 114–124; BP diastolic 61–75
[~2019-06-28 07:04] MED LIST changes: +ASPI-1265 PO; +COL100C PO; +FURO-150 PO; -LORazepam 2 mg/ml vial IV ONE; -LOSA50TA3 PO; -MELA3TAB PO; +MELA3TAB64 PO; -ceFAZolin 2gm in dextrose, iso 100 ML IV ONE; -dextrose 50%-water 50ml dispensing syringe IV PRN; -famotidine 20mg tablet PO ONE; -gabapentin 300mg capsule PO ONE; -metoprolol tartrate 12.5mg (1/2 tablet) PO ONE; -mupirocin 2% nasal ointment 1gm UD NS ONE; -ringers solution, lacted 1,000 ML IV SCH; -vancomycin inj 1,500 MG in normal saline 300ml IV soln IV ONE
[2019-06-28 07:44] LABS: BASOPHILS # (AUTO) 0.1 X10'3 (0-0.2); HEMATOCRIT 37.8 % (35.0-45.0); HEMOGLOBIN 12.6 g/dl (12.0-16.0); LYMPHOCYTES # (AUTO) 1.1 X10'3 (1.1-4.8); LYMPHOCYTES % (AUTO) 24.7 % (21-51); MEAN CORPUSCULAR HEMOGLOBIN 27.5 PG (27.0-31.0); MEAN CORPUSCULAR HGB CONC 33.4 g/dL (33.0-36.5); MEAN CORPUSCULAR VOLUME 82.3 FL (78-98); MONOCYTES # (AUTO) 0.3 X10'3 (0-0.9); MONOCYTES % (AUTO) 7.5 % (2-12); NEUTROPHILS # (AUTO) 2.9 X10'3 (1.8-7.7); NEUTROPHILS % (AUTO) 64.8 % (42-75); PLATELET COUNT 226 X10'3 (140-440); RED BLOOD COUNT 4.59 X10'6 (4.20-5.60); RED CELL DISTRIBUTION WIDTH 16.1 % (11.5-14.5); WHITE BLOOD COUNT 4.5 X10'3 (4.5-11.0)
[2019-06-28 07:54] LABS: PARTIAL THROMBOPLASTIN TIME 29 SECONDS (22-32)
[2019-06-28 07:57] LABS: ALANINE AMINOTRANSFERASE 27 U/L (12-78); ALBUMIN 3.9 G/DL (3.4-5.0); ALBUMIN/GLOBULIN RATIO 0.8 (1.1-1.5); ALKALINE PHOSPHATASE 133 IU/L (46-116); ANION GAP 5 (8-16); ASPARTATE AMINO TRANSFERASE 64 U/L (10-37); BILIRUBIN,TOTAL 0.4 MG/DL (0.1-1.0); BLOOD UREA NITROGEN 18 MG/DL (7-18); CALCIUM 8.9 MG/DL (8.5-10.1); CHLORIDE 96 MMOL/L (99-107); GLUCOSE 75 MG/DL (70-104); POTASSIUM 3.8 MMOL/L (3.5-5.1); SODIUM 133 MMOL/L (135-145); TOTAL CARBON DIOXIDE 32.2 MMOL/L (24-32); TOTAL PROTEIN 9.1 G/DL (6.4-8.2); eGFR 55 ML/MIN
[2019-06-28] MEDS ORDERED: POTA99TA21 PO (08:09)
[2019-06-28] MEDS ORDERED: FURO40TA4 PO (08:09)
[2019-06-28] MEDS ORDERED: TURM538C PO (08:09)
[2019-06-28] MEDS ORDERED: MAGN400C PO (08:09)
[2019-06-28] MEDS ORDERED: MILK150C2 PO (08:09)
[2019-06-28] MEDS ORDERED: DOCU100C41 PO (08:09)
[2019-06-28] MEDS ORDERED: ASPI-1265 PO (08:09)
[2019-06-28 11:03] LABS: CLARITY,URINE CLEAR (Clear); COLOR,URINE YELLOW (Yellow); GLUCOSE, URINE NEGATIVE (Neg); KETONES,URINE NEGATIVE (Neg); LEUKOCYTE ESTERASE ,URINE NEGATIVE (Neg); NITRITES, URINE NEGATIVE (Neg); OCCULT BLOOD,URINE TRACE-INTACT (Neg); PH,URINE 5.5 (4.8-8.0); PROTEIN,URINE NEGATIVE (Neg); UROBILINOGEN,URINE 0.2 E.U/dL (0.2-1.0)
[2019-06-28 11:15] LABS: BACTERIA,URINE NONE SEEN /HPF (Neg); MUCUS STRANDS FEW /LPF (Neg); RBC,URINE 0-2 /HPF (0-2); SQUAMOUS EPITHELIAL CELL,UR NONE SEEN /LPF (FEW); UA COLLECTION TYPE NON-SPECIFIED; WBC,URINE NONE SEEN /HPF (0-4)
== END 2019-06-28 10:05 | disposition home or self-care (01) ==
LOC: SSTAY O 07:04
PROVIDERS: ATTEND Radiology Diagnostic Radiology
DX: J90 Pleural effusion, not elsewhere classified (principal); I51.7 Cardiomegaly; F32.9 Major depressive disorder, single episode, unspecified; Z87.19 Personal history of other diseases of the digestive system; Z98.890 Other specified postprocedural states; Z90.710 Acquired absence of both cervix and uterus; Z72.89 Other problems related to lifestyle; Z88.8 Allergy status to other drugs, medicaments and biological substances; Z79.899 Other long term (current) drug therapy; Z79.82 Long term (current) use of aspirin; Z79.01 Long term (current) use of anticoagulants; Z80.8 Family history of malignant neoplasm of other organs or systems; Z84.89 Family history of other specified conditions
CPT/HCPCS: 32555; 36415; 71046; 80053; 81001; 85025; 85610; 85730; C1729

== ENCOUNTER 2019-07-02 08:59 | Day surgery (SDC) | payer MEDICARE ==
[~2019-07-02] VITALS: Ht 172.7 cm; Wt 71.8 kg
[2019-07-02] VITALS (8 sets, daily range): BP systolic 112–135; BP diastolic 73–88
[~2019-07-02 08:59] MED LIST changes: -BUPR150T8 PO; -COL100C PO; -FURO-150 PO; +FURO40TA4 PO; +MAGN400C PO; +MILK150C2 PO; +POTA99TA21 PO; +TURM538C PO; +cefazolin/dext.iso 2gm/50ml 50 ML IV ONE; +desflurane 240ml liquid inh. IH ONE; +famotidine 20mg tablet PO ONE; +ringers solution, lacted 1,000 ML IV SCH
[2019-07-02] MEDS ORDERED: ringers solution, lacted 1,000 ML IV SCH (09:32)
[2019-07-02] MEDS ORDERED: ondansetron/PF 4mg/2ml inj IV PRN (09:35)
[2019-07-02] MEDS ORDERED: morphine 4 MG/ML inj SYRINge IV PRN ×2 (09:35)
[2019-07-02] MEDS ORDERED: proCHLORperazine 10 MG/2 ml inj IV PRN (09:35)
[2019-07-02] MEDS ORDERED: meperidine/PF 25mg/ml syringe IV PRN ×3 (09:35)
[2019-07-02] MEDS ORDERED: BUPIVACAINE liposomal/PF 13.3 MG/ML vial IM ONE (12:17)
[2019-07-02] MEDS ORDERED: BUPIVAcaine/PF 2.5 mg/ml (0.25%) 30ml vial ONE (12:17)
[2019-07-02] MEDS ORDERED: midazolam 2 mg/2 ml injection ONE (12:35)
[2019-07-02] MEDS ORDERED: fentaNYL/PF 50MCG/1 ML 2ML syringe ONE (12:35)
[2019-07-02] MEDS ORDERED: LIDOcaine 2% (20mg/ml) 5ml vial ONE (12:36)
[2019-07-02] MEDS ORDERED: propofol inj 20 ML IV ONE (12:36)
[2019-07-02] MEDS ORDERED: ketorolac trometh. 30mg/ml inj. ONE (13:20)
--- NOTE | 2019-07-02 13:30 | NUR ---
ADMITTED TO PACU FROM OR ACCOMPANIED BY ANESTHESIA. INTIAL PHYSICAL ASSESSMENT DONE AND RECORDED. REPORT RECEIVED FROM ANESTHESIA.
--- NOTE | 2019-07-02 14:45 | NUR ---
DISCHARGE CRITERIA MET, DISCHARGE INSTRUCTIONS GIVEN, DEMONSTRATES VERBAL UNDERSTANDING. DISCHARGED HOME IN GOOD CONDITION.
== END 2019-07-02 14:45 | disposition home or self-care (01) ==
LOC: PAS 08:59
PROVIDERS: ATTEND Surgery
DX: K64.2 Third degree hemorrhoids (principal); K64.4 Residual hemorrhoidal skin tags; F32.9 Major depressive disorder, single episode, unspecified; E03.9 Hypothyroidism, unspecified; Z88.8 Allergy status to other drugs, medicaments and biological substances; Z79.899 Other long term (current) drug therapy; Z86.19 Personal history of other infectious and parasitic diseases; Z90.710 Acquired absence of both cervix and uterus; Z98.890 Other specified postprocedural states; Z87.891 Personal history of nicotine dependence
CPT/HCPCS: 46255; 71045; 82948; A6224; C9290; J1885; J2001; J2250; J2704; J3010; J3490; 88304; A4215; A4618; A6449; A7000; J7120

== ENCOUNTER 2020-04-19 13:55 | Emergency (ER) | payer MEDICARE ==
[~2020-04-19] VITALS: Ht 172.7 cm; Wt 75.9 kg
[~2020-04-19 13:55] MED LIST changes: +MELA3TAB39 PO; -MELA3TAB64 PO; -cefazolin/dext.iso 2gm/50ml 50 ML IV ONE; -desflurane 240ml liquid inh. IH ONE; -famotidine 20mg tablet PO ONE; -ringers solution, lacted 1,000 ML IV SCH
[2020-04-19 14:42] LABS: BASOPHILS # (AUTO) 0.1 X10'3 (0-0.2); BASOPHILS % (AUTO) 1.3 % (0-1); EOSINOPHILS # (AUTO) 0.1 X10'3 (0-0.9); EOSINOPHILS % (AUTO) 1.1 % (0-6); HEMATOCRIT 39.5 % (35.0-45.0); HEMOGLOBIN 13.1 g/dl (12.0-16.0); LYMPHOCYTES # (AUTO) 0.8 X10'3 (1.1-4.8); LYMPHOCYTES % (AUTO) 11.3 % (21-51); MEAN CORPUSCULAR HGB CONC 33.1 g/dL (33.0-36.5); MEAN CORPUSCULAR VOLUME 87.7 FL (78-98); MEAN PLATELET VOLUME 5.7 FL (7.4-10.4); MONOCYTES # (AUTO) 0.5 X10'3 (0-0.9); MONOCYTES % (AUTO) 7.4 % (2-12); NEUTROPHILS # (AUTO) 5.5 X10'3 (1.8-7.7); NEUTROPHILS % (AUTO) 78.9 % (42-75); PLATELET COUNT 432 X10'3 (140-440); RED CELL DISTRIBUTION WIDTH 13.9 % (11.5-14.5)
[2020-04-19 14:58] LABS: ALANINE AMINOTRANSFERASE 21 U/L (12-78); ALBUMIN 3.5 G/DL (3.4-5.0); ALBUMIN/GLOBULIN RATIO 0.7 (1.1-1.5); ALKALINE PHOSPHATASE 209 IU/L (46-116); AMYLASE 38 U/L (25-115); ANION GAP 6 (8-16); ASPARTATE AMINO TRANSFERASE 65 U/L (10-37); BILIRUBIN,TOTAL 0.3 MG/DL (0.1-1.0); BLOOD UREA NITROGEN 10 MG/DL (7-18); CALCIUM 8.7 MG/DL (8.5-10.1); CHLORIDE 98 MMOL/L (99-107); CREATININE 0.77 MG/DL (0.40-0.90); GLUCOSE 84 MG/DL (70-104); LIPASE 134 U/L (73-393); POTASSIUM 4.7 MMOL/L (3.5-5.1); SODIUM 133 MMOL/L (135-145); TOTAL CARBON DIOXIDE 28.9 MMOL/L (24-32); TOTAL PROTEIN 8.3 G/DL (6.4-8.2); eGFR 74 ML/MIN
[2020-04-19 15:07] LABS: CLARITY,URINE CLEAR (Clear); COLOR,URINE YELLOW (Yellow); GLUCOSE, URINE NEGATIVE (Neg); KETONES,URINE NEGATIVE (Neg); LEUKOCYTE ESTERASE ,URINE NEGATIVE (Neg); NITRITES, URINE NEGATIVE (Neg); OCCULT BLOOD,URINE NEGATIVE (Neg); PROTEIN,URINE NEGATIVE (Neg)
[2020-04-19 15:18] LABS: UA COLLECTION TYPE CLN CATCH MIDSTREAM
[2020-04-19] MEDS: diatr meglu/diatrizoate 30ml oral sol.-(3 dose) bottle PO SCH ×3 (17:07→19:17)
--- NOTE | 2020-04-19 18:28 | NUR ---
Spoke to camera techniciancallum Romo. He suggeted we wait until 1930 to administer final dose of gastrogaphin
[2020-04-19] MEDS ORDERED: iohexol 300mg/ml 100ml inj. ONE (19:18)
[2020-04-19] MEDS ORDERED: AZIT250T29 PO (20:17)
[2020-04-19 20:27] VITALS: BP 146/83
== END 2020-04-19 20:29 | disposition home or self-care (01) ==
LOC: ER 13:56
DX: J18.9 Pneumonia, unspecified organism (principal); R19.00 Intra-abdominal and pelvic swelling, mass and lump, unspecified site; C80.1 Malignant (primary) neoplasm, unspecified; R18.0 Malignant ascites; J90 Pleural effusion, not elsewhere classified; F41.9 Anxiety disorder, unspecified; F32.9 Major depressive disorder, single episode, unspecified; Z86.19 Personal history of other infectious and parasitic diseases; Z90.710 Acquired absence of both cervix and uterus; Z98.890 Other specified postprocedural states; Z88.8 Allergy status to other drugs, medicaments and biological substances; Z79.82 Long term (current) use of aspirin; Z79.899 Other long term (current) drug therapy
CPT/HCPCS: 36415; 74176; 74177; 80053; 81003; 82150; 83690; 85025; 99285; Q9963; Q9967

== ENCOUNTER 2020-05-21 07:33 | Day surgery (SDC) | payer MEDICARE ==
[~2020-05-21] VITALS: Ht 172.7 cm; Wt 77.4 kg
[2020-05-21] MEDS ORDERED: albumin 25% 100mL bottle x 1 IV PRN (07:55)
[2020-05-21 08:30] VITALS: BP 129/68
[2020-05-21] MEDS ORDERED: OXYC-658 PO (08:38)
[2020-05-21 09:45] VITALS: BP 100/50
[2020-05-21 10:00] VITALS: BP 120/71
[2020-05-21 10:15] VITALS: BP 129/58
[2020-05-21 11:30] LABS: GLUCOSE,BODY FLUID 99 MG/DL; LDH,BODY FLUID 722 U/L
[2020-05-21 12:14] LABS: BASOPHILS,BODY FLUID 1 %; LYMPHOCYTES,BODY FLUID 48 %; MONOCYTES,BODY FLUID 22 %; NEUTROPHILS,BODY FLUID 29 %
[2020-05-21 12:23] LABS: BFAPPEAR CLOUDY; BFCOLOR AMBER
[2020-05-21 12:24] LABS: BFVOLUME 60 ML
[2020-05-21 12:36] LABS: BF MESOTHELIAL CELLS FEW; BF RBC COUNT 10350 /CU MM; BF WBC COUNT 3775 /CU MM (0-1000)
== END 2020-05-21 10:35 | disposition home or self-care (01) ==
LOC: SSTAY O 07:33
PROVIDERS: ATTEND Radiology Diagnostic Radiology
DX: R18.8 Other ascites (principal); F41.9 Anxiety disorder, unspecified; F32.9 Major depressive disorder, single episode, unspecified; E03.9 Hypothyroidism, unspecified; Z86.19 Personal history of other infectious and parasitic diseases; Z90.710 Acquired absence of both cervix and uterus; Z98.890 Other specified postprocedural states; Z87.891 Personal history of nicotine dependence; Z72.89 Other problems related to lifestyle; Z79.899 Other long term (current) drug therapy; Z88.8 Allergy status to other drugs, medicaments and biological substances; Z88.1 Allergy status to other antibiotic agents; Z79.82 Long term (current) use of aspirin; Z80.9 Family history of malignant neoplasm, unspecified
CPT/HCPCS: 49083; 82945; 83615; 87070; 89051

== ENCOUNTER 2020-05-25 08:25 | Day surgery (SDC) | payer MEDICARE ==
[2020-05-25] VITALS (17 sets, daily range): BP systolic 98–144; BP diastolic 51–73
[~2020-05-25] VITALS: Ht 172.7 cm; Wt 75.8 kg
[~2020-05-25 08:25] MED LIST changes: +OXYC-658 PO
[2020-05-25] MEDS ORDERED: normal saline 1000ml 1,000 ML IV SCH ×3 (08:40→11:15)
[2020-05-25 09:10] LABS: BASOPHILS % (AUTO) 0.4 % (0-1); EOSINOPHILS # (AUTO) 0.1 X10'3 (0-0.9); EOSINOPHILS % (AUTO) 1.3 % (0-6); HEMATOCRIT 35.1 % (35.0-45.0); HEMOGLOBIN 11.7 g/dl (12.0-16.0); LYMPHOCYTES % (AUTO) 13.8 % (21-51); MEAN CORPUSCULAR HEMOGLOBIN 28.9 PG (27.0-31.0); MEAN CORPUSCULAR HGB CONC 33.3 g/dL (33.0-36.5); MEAN CORPUSCULAR VOLUME 86.8 FL (78-98); MEAN PLATELET VOLUME 5.6 FL (7.4-10.4); MONOCYTES # (AUTO) 0.7 X10'3 (0-0.9); MONOCYTES % (AUTO) 9.6 % (2-12); NEUTROPHILS # (AUTO) 5.2 X10'3 (1.8-7.7); NEUTROPHILS % (AUTO) 74.9 % (42-75); PLATELET COUNT 406 X10'3 (140-440); RED BLOOD COUNT 4.04 X10'6 (4.20-5.60); RED CELL DISTRIBUTION WIDTH 13.4 % (11.5-14.5); WHITE BLOOD COUNT 6.9 X10'3 (4.5-11.0)
--- NOTE | 2020-05-25 09:30 | NUR ---
MD Vamsi is at bedside discussing risks, benefits and plan of care.
[2020-05-25] MEDS ORDERED: midazolam 2 mg/2 ml injection ONE (11:15)
[2020-05-25] MEDS ORDERED: fentaNYL/PF 50MCG/1 ML 2ML syringe ONE ×2 (11:15→12:02)
[2020-05-25] MEDS ORDERED: iohexol 300mg/ml 100ml inj. ONE (11:31)
[2020-05-25] MEDS ORDERED: FLU VACC QS2020-21(6MOS UP)/PF 60 MCG/0.5 ML SYRINGE IMVAC ONE (13:55)
== END 2020-05-25 14:30 | disposition home or self-care (01) ==
LOC: SSTAY O 08:25
PROVIDERS: ATTEND Radiology Diagnostic Radiology
DX: C56.9 Malignant neoplasm of unspecified ovary (principal); F41.9 Anxiety disorder, unspecified; F32.9 Major depressive disorder, single episode, unspecified; E03.9 Hypothyroidism, unspecified; Z86.19 Personal history of other infectious and parasitic diseases; Z85.850 Personal history of malignant neoplasm of thyroid; Z90.710 Acquired absence of both cervix and uterus; Z98.890 Other specified postprocedural states; Z87.891 Personal history of nicotine dependence; Z72.89 Other problems related to lifestyle; Z88.8 Allergy status to other drugs, medicaments and biological substances; Z88.1 Allergy status to other antibiotic agents; Z79.899 Other long term (current) drug therapy; Z79.82 Long term (current) use of aspirin; Z81.8 Family history of other mental and behavioral disorders; Z80.8 Family history of malignant neoplasm of other organs or systems; Z84.89 Family history of other specified conditions
CPT/HCPCS: 36415; 49180; 77012; 85025; 99152; 99153; J2250; J3010; J7030; Q9967; 88108; 88173; 88305; 88341; 88342

== ENCOUNTER 2020-06-11 08:38 | Day surgery (SDC) | payer MEDICARE ==
[~2020-06-11] VITALS: Ht 172.7 cm; Wt 77.7 kg
[2020-06-11] VITALS (11 sets, daily range): BP systolic 120–131; BP diastolic 60–96
[2020-06-11] MEDS ORDERED: albumin 25% 100mL bottle x 1 IV PRN (08:55)
[2020-06-11] MEDS ORDERED: OXYC10TA47 PO (09:03)
[2020-06-11] MEDS ORDERED: normal saline 1000ml 1,000 ML IV SCH (10:35)
[2020-06-11] MEDS ORDERED: LIDOcaine 1%/PF 5ML 10 MG/ML VIAL ONE (11:03)
[2020-06-11] MEDS ORDERED: fentaNYL/PF 50MCG/1 ML 2ML syringe ONE (11:03)
[2020-06-11] MEDS ORDERED: midazolam 2 mg/2 ml injection ONE (11:03)
[2020-06-11] MEDS ORDERED: heparin sodium, porcine/PF 100unit/ml 5ML syringe ONE (11:03)
== END 2020-06-11 13:08 | disposition home or self-care (01) ==
LOC: SSTAY O 08:38
PROVIDERS: ATTEND Radiology Diagnostic Radiology
DX: C56.9 Malignant neoplasm of unspecified ovary (principal); R18.8 Other ascites; F41.9 Anxiety disorder, unspecified; F32.9 Major depressive disorder, single episode, unspecified; E03.9 Hypothyroidism, unspecified; Z86.19 Personal history of other infectious and parasitic diseases; Z90.710 Acquired absence of both cervix and uterus; Z98.890 Other specified postprocedural states; Z87.891 Personal history of nicotine dependence; Z72.89 Other problems related to lifestyle; Z88.1 Allergy status to other antibiotic agents; Z88.8 Allergy status to other drugs, medicaments and biological substances; Z79.899 Other long term (current) drug therapy; Z81.8 Family history of other mental and behavioral disorders; Z80.8 Family history of malignant neoplasm of other organs or systems; Z82.49 Family history of ischemic heart disease and other diseases of the circulatory system
CPT/HCPCS: 36561; 49083; 76937; 77001; 99152; 99153; C1769; C1788; C1894; J1642; J2250; J3010; J7030

== ENCOUNTER 2025-03-18 09:54 | Day surgery (SDC) | payer MEDICARE, OTHER ==
[~2025-03-18] VITALS: Ht 172.7 cm; Wt 75.6 kg
[2025-03-18] VITALS (7 sets, daily range): BP systolic 139–167; BP diastolic 72–74; PULSE 72–86; RESP 12–20; O2SAT 95–97
[~2025-03-18 09:54] MED LIST changes: +CALCIUM PO; +DILT-115 PO; -FLUO20CA39 PO; +FLUO20CA41 PO; -FURO40TA4 PO; -LEVO112T5 PO; +LEVO75CA6 PO; -MAGN400C PO; +MULT-1249 PO; -OXYC-658 PO; -POTA99TA21 PO; +POTA99TA26 PO; -TURM538C PO; -VITA-268 PO; +ZINC PO
[2025-03-18] MEDS ORDERED: AMOX-580 PO (10:39)
[2025-03-18] MEDS: fentaNYL/PF 50MCG/1 ML 2ML syringe IV ONE (13:14)
[2025-03-18] MEDS: normal saline 1000ml 1,000 ML IV SCH (13:15)
[2025-03-18] MEDS: MIDAZolam 1mg/ml 10ml vial IV ONE (13:15)
--- NOTE | 2025-03-18 19:10 | CARDIOLOGY REPORT ---
APPROVED REPORT EXAM: Focused, limited transesophageal echocardiogram with color flow Doppler. Patient Location: CARDIAC SHORT STAY Blood Pressure: 168 /87 mmHg Heart Rate: 80'S bpm Rhythm: ATRIAL FIBRILLATION WITH BBB Indications EVALUATE MV RING REPAIR - ? MS / MR 36mm MV RING REPAIR 11/2018 UNK SIZE TV RING REPAIR 11/2018 SURGICALLY LIGATED DEREK 11/2018 ALEX PROBE PASSED BY: Orville DAWSON MD Spreader Operator: Lona Dawson MD Previous echo: [facility] 02/17/25 EF: 69%; nlLV; nlRV; mAS - LIZETH 1.46; pkv:2.87; grad: 33/18; mMS? w/ MV ri ng - mMR, mean: 6mmHG; nlTV ring repair - trTR LEFT VENTRICLE Normal LV size and wall thickness. Overall systolic function is low normal. LVEF is 50-55%. RIGHT VENTRICLE RV appears increased in size with mildly reduced function. ATRIA Left atrium is severely dilated. Left atrial appendage is surgically absent due to ligation procedure . No residual flow detected. Right atrium is severely dilated. AORTIC VALVE Trileaflet AV appears at least mildly sclerotic with probable mild stenosis. Mild insufficiency. Valv e not comprehensively evaluated due to focused exam. MITRAL VALVE 36mm MV RING REPAIR MV Ring repair appears well seated with normal function. Mild, eccentric residual regurgitation. Mean gradient of 3 mmHG. Peak velocity is measured at 1.80 m/sec. TRICUSPID VALVE UNK SIZE TV RING REPAIR appears well seated with normal function. Trace residual regurgitation. PULMONIC VALVE Grossly normal PV without obvious stenosis, Valve not comprehensively evaluated due to focused exam. CONCLUSION Normal LV size and wall thickness. Overall systolic function is low normal. LVEF is 50-55%. RV appear s increased in size with mildly reduced function. Left atrium is severely dilated. Left atrial append age is surgically absent due to ligation procedure. No residual flow detected. Right atrium is severe ly dilated. Trileaflet AV appears at least mildly sclerotic with probable mild stenosis. Mild insuffi ciency. Valve not comprehensively evaluated due to focused exam. 36mm MV RING REPAIR MV Ring repair a ppears well seated with normal function. Mild, eccentric residual regurgitation. Mean gradient of 3 m mHG. Peak velocity is measured at 1.80 m/sec. Unkown SIZE TV RING REPAIR appears well seated with nor mal function. Trace residual regurgitation. Conclusion Normal LV size and wall thickness. Overall systolic function is low normal. LVEF is 50-55%. RV appears increased in size with mildly reduced function. Left atrium is severely dilated. Left atrial appendage is surgically absent due to ligation procedur e. No residual flow detected. Right atrium is severely dilated. Trileaflet AV appears at least mildly sclerotic with probable mild stenosis. Mild insufficiency. Va lve not comprehensively evaluated due to focused exam. 36mm MV RING REPAIR MV Ring repair appears well seated with normal function. Mild, eccentric residua l regurgitation. Mean gradient of 3 mmHG. Peak velocity is measured at 1.80 m/sec. Unkown SIZE TV RING REPAIR appears well seated with normal function. Trace residual regurgitation.
== END 2025-03-18 14:45 | disposition home or self-care (01) ==
LOC: SSTAY O 09:54 → EDSTATUS 14:00 → SSTAY O 14:45
PROVIDERS: ATTEND Student in an Organized Health Care Education/Training Program
DX: I08.0 Rheumatic disorders of both mitral and aortic valves (principal); I11.0 Hypertensive heart disease with heart failure; I50.9 Heart failure, unspecified; E78.00 Pure hypercholesterolemia, unspecified; E03.9 Hypothyroidism, unspecified; J44.9 Chronic obstructive pulmonary disease, unspecified; Z85.43 Personal history of malignant neoplasm of ovary; Z79.82 Long term (current) use of aspirin; Z79.890 Hormone replacement therapy; Z79.899 Other long term (current) drug therapy; Z88.6 Allergy status to analgesic agent
CPT/HCPCS: 93312; 93325; 94760; A4615; J2250; J3010; J7030